=== PATIENT | female | born 1970 | race American Indian/Alaskan Native ===

== ENCOUNTER 2018-07-31 19:01 | Emergency (ER) | payer SELFPAY ==
--- OUTSIDE RECORDS SUMMARY | 2018-07-31 19:03 | XMS REPORT | Summary of Care ---
:1970 Author Organization [facility] Address [address] [place], [place] [address]- Encounter HQ Encntr_alias(FIN) [id number] Date(s): 04/07/16 - 04/07/16 [facility] [address] [place] [address]- [phone] Discharge Disposition: Home Attending Physician: Crispin Trinidad MD Vital Signs No data available for this section Problem List No data available for this section Allergies, Adverse Reactions, Alerts Substance Reaction Severity Status codeine Active penicillins Active Medications No data available for this section Results No data available for this section Immunizations No data available for this section Procedures No data available for this section Social History Social History Type Response Smoking Status Current every day smoker; Type: Cigarettes; Ready to change: No ; Concerns about tobacco use in household: No; Exposure to Tobacco Smoke None; Cigarette Smoking Last 365 Days Yes; Reg Smoking Cessation Counseling No Assessment and Plan No data available for this section
--- OUTSIDE RECORDS SUMMARY | 2018-07-31 19:03 | XMS REPORT | Continuity of Care Document ---
:1970 Author Organization Interface Problems Problem Status Onset Classification Date Comments Source Date Reported Discharge 02/22/2016 [facility] Diagnosis: 6 Other chronic pain NUMBNESS ALL Active [facility] OVER BODY 6 M54.5 Active [facility] Medications Medication Details Route Status Patient Ordering Order Source Instructions Provider Date predniSONE 20 mg 40 mg=2 Active oral tablet tab, PO, 016 [facility] Daily, X 5 day, # 10 tab, 0 Refill(s) Diazepam 10 mg, Inactive Route: PO, 016 [facility] ONCE, Dosing Weight 59.091, kg, Priority: STAT, Start date: 02/19/16 19:56:00 CDT, Stop date: 02/19/16 19:56:00 CDT Acetaminophen 1 tab, Inactive 325 MG / Route: PO, 016 [facility] Hydrocodone Dosing Bitartrate 5 MG Weight Oral Tablet 59.091, kg, ONCE, STAT, Start date: 02/19/16 19:56:00 CDT, Stop date: 02/19/16 19:56:00 CDT Dexamethasone 12 mg, Inactive Route: IM, 016 [facility] ONCE, Dosing Weight 59.091, kg, Priority: STAT, Start date: 02/19/16 19:56:00 CDT, Stop date: 02/19/16 19:56:00 CDT Allergies, Adverse Reactions, Alerts Substance Category Reaction Severity Reaction Status Date Comments Source type Reported codeine [facility] Active allergy [facility] penicillins [facility] Active allergy [facility] Immunizations Immunization Date Given Site Status Last Updated Comments Source Results Order Results Value Reference Date Interpretation Comments Source Name Range Spine Spine lumbar Study: Lumbar spine, 5 views 04/07 - lumbar series DX /2015 - [facility] series DX Clinical Indication: M54.5 Low back pain Read by: Darron Orellana MD Dictated Date/time: 04/07/16 17:01 Electronically Signed by: Darron Orellana MD 04/07/16 17:01 FINAL REPORT Comparison: None FINDINGS: Multiple views of the lumbar spine show 5 nonrib-bearing lumbar vertebra. No acute compression fracture or subluxation is seen. Intervertebral disc spaces are well-maintained. No pars interart icularis defects are seen. Soft tissues are unremarkable. IMPRESSION: No significant abnormality of the lumbar spine. SL: [id number] URINE UA Color Ltyellow 02/19 AND /2015 [facility] STOOL URINE UA <=1.0 mg/dL 0.1 - 1.0 02/19 AND Urobilinogen /2015 [facility] STOOL URINE UA WBC 1 /HPF 0 - 5 02/19 AND /2015 [facility] STOOL URINE UA RBC 2 /HPF 0 - 2 02/19 AND /2015 [facility] STOOL URINE UA Leuk Est Trace Negative 02/19 AND /2015 [facility] STOOL *ABN* (02/19/16 7:50 PM) URINE UA Sq Epi Few /LPF Few /LPF 02/19 AND /2015 [facility] STOOL URINE UA Ketones Negative Negative 02/19 AND mg/dL mg/dL /2015 [facility] STOOL URINE UA Glucose Negative Negative 02/19 AND mg/dL mg/dL /2015 [facility] STOOL URINE UA Blood Negative Negative 02/19 AND /2015 [facility] STOOL (02/19/16 7:50 PM) URINE UA Bili Negative Negative 02/19 AND /2015 [facility] STOOL *NA* (02/19/16 7:50 PM) URINE UA Turbidity Clear Clear 02/19 AND /2015 [facility] STOOL (02/19/16 7:50 PM) URINE UA Protein Negative Negative 02/19 AND mg/dL mg/dL /2015 [facility] STOOL URINE UA pH 6.0 5.0 - 8.0 02/19 AND /2015 [facility] STOOL URINE UA Spec Grav 1.016 <=1.030 02/19 AND /2015 [facility] STOOL URINE UA Nitrite Negative Negative 02/19 AND /2015 [facility] STOOL (02/19/16 7:50 PM) URINE U Preg Negative Negative 02/19 CHEM /2015 [facility] (02/19/16 7:50 PM) Vital Signs Vital Sign Value Date Comments Source Systolic (mm Hg) 124 02/20/2016 [facility] Respitory Rate 16 02/20/2016 [facility] Heart Rate 80 02/20/2016 [facility] Diastolic (mm Hg) 74 02/20/2016 [facility] Temperature Oral (F) 98.7 F 02/20/2016 [facility] Systolic (mm Hg) 122 02/20/2016 [facility] Diastolic (mm Hg) 79 02/20/2016 [facility] Respitory Rate 18 02/20/2016 [facility] Heart Rate 86 02/20/2016 [facility] BMI Calculated 25.44 02/20/2016 [facility] Height 152.4 cm 02/20/2016 [facility] Temperature Oral (F) 99.7 F 02/20/2016 [facility] Weight 59.091 02/20/2016 [facility] Encounters Location Location Encounter Encounter Reason Attending ADM DC Status Source Details Type Number For Provider Date Date Visit [facility] [id number] [facility] 02/19 02/19 [facility] /2015 [facility] Outpatient [id number] Crispin 04/07 04/08 [facility] Trinidad /2015 [facility] Procedures Procedure Code Date Perfomer Comments Source
--- OUTSIDE RECORDS SUMMARY | 2018-07-31 19:03 | XMS REPORT | Summary of Care ---
:1970 Author Organization [facility] Address [address] [address] [place], [place] [address]- Encounter HQ Lizette(SANTHOSH) [id number] Date(s): 02/19/16 - 02/19/16 [facility] [address] [place] [address]- [phone] Discharge Diagnosis: Other chronic pain Discharge Disposition: Home Attending Physician: Tor Estrada MD Vital Signs Most recent to oldest [Reference Range]: 1 2 Height 152.4 cm (02/19/16 7:19 PM) Temperature Oral [96.4-99.1 DegF] 98.7 DegF 99.7 DegF (02/19/16 8:32 PM) *HI* (02/19/16 7:19 PM) Blood Pressure [90-140/60-90 mmHg] 122/79 mmHg (02/19/16 7:19 PM) Systolic Blood Pressure [90-140 mmHg] 124 mmHg (02/19/16 8:32 PM) Diastolic Blood Pressure [60-90 mmHg] 74 mmHg (02/19/16 8:32 PM) Respiratory Rate [14-20 BRMIN] 16 BRMIN 18 BRMIN (02/19/16 8:32 PM) (02/19/16 7:19 PM) Peripheral Pulse Rate [60-100 bpm] 80 bpm 86 bpm (02/19/16 8:32 PM) (02/19/16 7:19 PM) Weight 59.091 kg (02/19/16 7:19 PM) Body Mass Index 25.44 m2 (02/19/16 7:19 PM) Problem List No data available for this section Allergies, Adverse Reactions, Alerts Substance Reaction Severity Status codeine Active penicillins Active Medications acetaminophen-hydrocodone 325 mg-5 mg oral tablet 1 tab, Route: PO, Dosing Weight 59.091, kg, ONCE, STAT, Start date: 02/19/16 19: 56:00 CDT, Stop date: 02/19/16 19:56:00 CDT Start Date: 02/19/16 Stop Date: 02/19/16 Status: Completeddexamethasone 12 mg, Route: IM, ONCE, Dosing Weight 59.091, kg, Priority: STAT, Start date: 19:56:00 CDT,Stop date: 02/19/16 19:56:00 CDT Start Date: 02/19/16 Stop Date: 02/19/16 Status: Completeddiazepam 10 mg, Route: PO, ONCE, Dosing Weight 59.091, kg, Priority: STAT, Start date: 19:56:00 CDT,Stop date: 02/19/16 19:56:00 CDT Start Date: 02/19/16 Stop Date: 02/19/16 Status: CompletedpredniSONE 20 mg oral tablet 40 mg=2 tab, PO, Daily, X 5 day, # 10 tab, 0 Refill(s) Start Date: 02/19/16 Stop Date: 02/24/16 Status: Ordered Results URINE CHEM Most recent to oldest [Reference Range]: 1 U Preg [Negative] Negative (02/19/16 7:50 PM) URINE AND STOOL Most recent to oldest [Reference Range]: 1 UA Turbidity [Clear] Clear (02/19/16 7:50 PM) UA Color Ltyellow *NA* (02/19/16 7:50 PM) UA pH [5.0-8.0] 6.0 (02/19/16 7:50 PM) UA Spec Grav [<=1.030] 1.016 (02/19/16 7:50 PM) UA Glucose [Negative mg/dL] Negative mg/dL *NA* (02/19/16 7:50 PM) UA Blood [Negative] Negative (02/19/16 7:50 PM) UA Ketones [Negative mg/dL] Negative mg/dL *NA* (02/19/16 7:50 PM) UA Protein [Negative mg/dL] Negative mg/dL (02/19/16 7:50 PM) UA Urobilinogen [0.1-1.0 mg/dL] <=1.0 mg/dL *NA* (02/19/16 7:50 PM) UA Bili [Negative] Negative *NA* (02/19/16 7:50 PM) UA Leuk Est [Negative] Trace *ABN* (02/19/16 7:50 PM) UA Nitrite [Negative] Negative (02/19/16 7:50 PM) UA WBC [0-5 /HPF] 1 /HPF (02/19/16 7:50 PM) UA RBC [0-2 /HPF] 2 /HPF (02/19/16 7:50 PM) UA Sq Epi [Few /LPF] Few /LPF *NA* (02/19/16 7:50 PM) Immunizations No data available for this section [...]
--- NOTE | 2018-07-31 20:23 | EDPHYS ---
Physician Documentation [facility] Name: Shalini Roberts Age: 48 yrs Sex: Female : 1970 Arrival Date: 07/31/2018 Time: 19:03 Bed 11 Private MD: ED Physician Silvano Justin HPI: 07/31 20:37 This 48 yrs old Female presents to ER via Wheelchair with complaints of snw Back Pain. 20:37 The patient presents with pain that is acute, with no known mechanism of injury. The snw symptoms are located in the low back. Onset: The symptoms/episode began/occurred suddenly, today. The pain does not radiate. Associated signs and symptoms: The patient has no apparent associated signs or symptoms. The problem was sustained from a chronic condition, bending. Severity of symptoms: At their worst the symptoms were moderate. The patient has experienced similar episodes in the past, chronically. It is unknown whether or not the patient has recently seen a physician. hx of spondylosis. 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 - Social history:: Smoking status: Patient/guardian denies using tobacco. - Ebola Screening: : No symptoms or risks identified at this time. ROS: 20:32 Constitutional: Negative for fever, chills, and weight loss, Eyes: Negative for injury, snw pain, redness, and discharge, ENT: Negative for injury, pain, and discharge, Neck: Negative for injury, pain, and swelling, Cardiovascular: Negative for chest pain, palpitations, and edema, Respiratory: Negative for shortness of breath, cough, wheezing, and pleuritic chest pain, Abdomen/GI: Negative for abdominal pain, nausea, vomiting, diarrhea, and constipation, : Negative for injury, bleeding, discharge, and swelling, MS/Extremity: Negative for injury and deformity, Skin: Negative for injury, rash, and discoloration, Neuro: Negative for headache, weakness, numbness, tingling, and seizure. 20:32 Back: Positive for decreased range of motion, pain at rest, pain with movement, Negative for injury or acute deformity. Exam: 20:31 Constitutional: This is a well developed, well nourished patient who is awake, alert, snw and in no acute distress. Head/Face: Normocephalic, atraumatic. Eyes: Pupils equal round and reactive to light, extra-ocular motions intact. Lids and lashes normal. Conjunctiva and sclera are non-icteric and not injected. Cornea within normal limits. Periorbital areas with no swelling, redness, or edema. ENT: Nares patent. No nasal discharge, no septal abnormalities noted. Tympanic membranes are normal and external auditory canals are clear. Oropharynx with no redness, swelling, or masses, exudates, or evidence of obstruction, uvula midline. Mucous membranes moist. Neck: Trachea midline, no thyromegaly or masses palpated, and no cervical lymphadenopathy. Supple, full range of motion without nuchal rigidity, or vertebral point tenderness. No Meningismus. Chest/axilla: Normal chest wall appearance and motion. Nontender with no deformity. No lesions are appreciated. Cardiovascular: Regular rate and rhythm with a normal S1 and S2. No gallops, murmurs, or rubs. Normal PMI, no JVD. No pulse deficits. Respiratory: Lungs have equal breath sounds bilaterally, clear to auscultation and percussion. No rales, rhonchi or wheezes noted. No increased work of breathing, no retractions or nasal flaring. Abdomen/GI: Soft, non-tender, with normal bowel sounds. No distension or tympany. No guarding or rebound. No evidence of tenderness throughout. Skin: Warm, dry with normal turgor. Normal color with no rashes, no lesions, and no evidence of cellulitis. MS/ Extremity: Pulses equal, no cyanosis. Neurovascular intact. Full, normal range of motion. Neuro: Awake and alert, GCS 15, oriented to person, place, time, and situation. Cranial nerves II-XII grossly intact. Motor strength 5/5 in all extremities. Sensory grossly intact. Cerebellar exam normal. Normal gait. Psych: Awake, alert, with orientation to person, place and time. Behavior, mood, and affect are within normal limits. 20:31 Back: pain, that is moderate, ROM is painful, normal spinal alignment noted, CVA tenderness, is absent, vertebral tenderness, is not appreciated, muscle spasm, is appreciated in the left scapular area, right scapular area, left subscapular area, right subscapular area, low back area, mid back area, right mid back and right low back. Vital Signs: 19:10 BP 136 / 87; Pulse 78; Resp 18; Temp 98; Pulse Ox 100% on R/A; Weight 72.57 kg (R); ak1 Height 5 ft. 0 in. (152.40 cm) (R); Pain 10/10; 20:41 BP 130 / 69; Pulse 65; Resp 18; Pulse Ox 99% ; tl3 19:10 Body Mass Index 31.25 (72.57 kg, 152.40 cm) ak1 MDM: 19:56 Patient medically screened. snw 20:32 Data reviewed: vital signs, nurses notes. Data interpreted: Pulse oximetry: on room air snw is 100 %. Interpretation: normal. Counseling: I had a detailed discussion with the patient and/or guardian regarding: the historical points, exam findings, and any diagnostic results supporting the discharge/admit diagnosis, the presence of at least one elevated blood pressure reading (>120/80) during this emergency department visit, the need for outpatient follow up, for definitive care. Special discussion: I have referred the patient to see his PCP for further evaluation of high blood pressure. Based on the history and exam findings, there is no indication for further emergent testing or inpatient evaluation. I discussed with the patient/guardian the need to see the back specialist for further evaluation of the symptoms. I discussed with the patient/guardian the need to see the primary care provider for further evaluation of the symptoms. Administered Medications: 20:43 Drug: TORadol 60 mg Route: IM; Site: left gluteus; tl3 20:43 Follow up: Response: Medication administered at discharge. tl3 20:43 Drug: Valium 5 mg Route: PO; tl3 20:43 Follow up: Response: Medication administered at discharge. tl3 Disposition: 07/31/18 20:22 Discharged to Home. Impression: Low back pain. - Condition is Stable. - Discharge Instructions: Back Pain, Adult, Hypertension, Musculoskeletal Pain, Back Exercises, [id number], Cryotherapy, Heat Therapy. - Prescriptions for Diclofenac Sodium 75 mg Oral Tablet Sustained Release - take 1 tablet by ORAL route 2 times per day; 30 tablet. orphenadrine citrate 100 mg Oral Tablet Sustained Release - take 1 tablet by ORAL route 2 times per day As needed; 20 tablet. - Work release form, Medication Reconciliation Form, Thank You Letter, Antibiotic Education, Prescription Opioid Use form. - Follow up: Private Physician; When: 2 - 3 days; Reason: Recheck today's complaints, Continuance of care, Re-evaluation by your physician. Follow up: Emergency Department; When: As needed; Reason: Worsening of condition. Addendum: 08/07/2018 11:49 Co-signature as Attending Physician, Silvano Justin MD. g s Signatures: Eliza Cole, KARMA-C GREY WASHER-CsnAlexa Lund, RN RN ak1 Silvano Justin MD MD Kareen Victoria, RN RN tl3 Corrections: (The following items were deleted from the chart) 07/31 20:44 20:22 07/31/2018 20:22 Discharged to Home. Impression: Low back pain. Condition is tl3 Stable. Forms are Medication Reconciliation Form, Thank You Letter, Antibiotic Education, Prescription Opioid Use. Follow up: Private Physician; When: 2 - 3 days; Reason: Recheck today's complaints, Continuance of care, Re-evaluation by your physician. Follow up: Emergency Department; When: As needed; Reason: Worsening of condition. snw
--- NOTE | 2018-07-31 20:23 | ER ---
Nurse's Notes [facility] Name: Shalini Roberts Age: 48 yrs Sex: Female : 1970 Arrival Date: 07/31/2018 Time: 19:03 Bed 11 Private MD: Diagnosis: Low back pain Presentation: 07/31 19:11 Presenting complaint: Patient states: back pain after work today. 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 Transition of care: patient was not received from another setting of care. Onset of symptoms was July 31, 2018. Risk Assessment: Do you want to hurt yourself or someone else? Patient reports no desire to harm self or others. Initial Sepsis Screen: Does the patient meet any 2 criteria? No. Patient's initial sepsis screen is negative. Does the patient have a suspected source of infection? No. Patient's initial sepsis screen is negative. Care prior to arrival: None. 19:11 Method Of Arrival: Wheelchair ak1 19:11 Acuity: ALEAH 4 ak1 Triage Assessment: 19:12 General: Appears in no apparent distress. Behavior is calm, cooperative. Pain: ak1 Complains of pain in back. 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 - Social history:: Smoking status: Patient/guardian denies using tobacco. - Ebola Screening: : No symptoms or risks identified at this time. Screenin:41 Abuse screen: Denies threats or abuse. Nutritional screening: No deficits noted. tl3 Tuberculosis screening: No symptoms or risk factors identified. Fall Risk None identified. Assessment: 20:41 Neuro: Level of Consciousness is awake, alert, obeys commands. tl3 Vital Signs: 19:10 BP 136 / 87; Pulse 78; Resp 18; Temp 98; Pulse Ox 100% on R/A; Weight 72.57 kg (R); ak1 Height 5 ft. 0 in. (152.40 cm) (R); Pain 10/10; 20:41 BP 130 / 69; Pulse 65; Resp 18; Pulse Ox 99% ; tl3 19:10 Body Mass Index 31.25 (72.57 kg, 152.40 cm) ak1 ED Course: 19:03 Patient arrived in ED. as 19:11 Triage completed. ak1 19:12 Arm band placed on Patient placed in waiting room, Patient notified of wait time. ak1 19:18 Eliza Cole FNP-C is [facility]. snw 19:18 Silvano Justin MD is Attending Physician. snw 20:41 No provider procedures requiring assistance completed. Patient did not have IV access tl3 during this emergency room visit. 20:44 Patient has correct armband on for positive identification. tl3 Administered Medications: 20:43 Drug: TORadol 60 mg Route: IM; Site: left gluteus; tl3 20:43 Follow up: Response: Medication administered at discharge. tl3 20:43 Drug: Valium 5 mg Route: PO; tl3 20:43 Follow up: Response: Medication administered at discharge. tl3 Outcome: 20:22 Discharge ordered by . snw 20:44 Discharged to home ambulatory. tl3 20:44 Condition: good 20:44 Discharge instructions given to patient, Instructed on discharge instructions, follow up and referral plans. medication usage, Demonstrated understanding of instructions, follow-up care, medications, Prescriptions given X 1. 20:44 Patient left the ED. tl3 Signatures: Eliza Cole FNP-C FNP-Philomena Tolbert Amber RN RN ak1 Kareen Victoria RN RN tl3
[2018-07-31] MEDS ORDERED: DIAZEPAM 5 MG TABLET ONE (20:40)
[2018-07-31] MEDS ORDERED: KETOROLAC 30 MG/ML INJ ONE (20:41)
== END 2018-07-31 20:44 | disposition home or self-care (01) ==
LOC: ER 19:01
DX: M54.5 Low back pain (principal); Z88.0 Allergy status to penicillin
CPT/HCPCS: 96372; 99283

== ENCOUNTER 2020-10-28 08:53 | Emergency (ER) | payer SELFPAY ==
--- OUTSIDE RECORDS SUMMARY | 2020-10-28 09:53 | XMS REPORT | Continuity of Care Document ---
:1970 Author Organization [facility] t Address [address] [place] [address] Care Team Providers Name Role Phone Vivi Attending Clinician Ignacio Estrada Attending Clinician Problems Condition Condition Condition Status Onset Resolution Last Treating Co mments Source Name Details Category Date Date Treatment Clinician Date BV BV Disease Active Josafat (bacterial (bacterial 4-20 He alth vaginosis) vaginosis) 00:00: 00 Trichomona Trichomona Disease Active H arris s s 4-20 Health vaginalis vaginalis 00:00: (TV) (TV) 00 infection infection Cough Cough Disease Active Josafat 6-14 Health 00:00: 00 Dysuria Dysuria Disease Active Maurice 5-21 Health 00:00: 00 Vaginal Vaginal Disease Active Maurice discharge discharge 5-21 Heal th 00:00: 00 Chronic Chronic Disease Active Josafat low back low back 5-21 Health pain pain 00:00: without without 00 sciatica sciatica NUMBNESS Diagnosis Active 2016-02-19 M emoria ALL OVER -19 23:17:00 l BODY NUMBNESS 00:00: [place] n ALL OVER 00 BODY Active 02/19/2016 [facility] Shoulder Shoulder Disease Active Harri s pain pain -26 Health 00:00: 00 Sinusitis Sinusitis Disease Active 2010-10 Tio ris 1-29 Health 00:00: 00 Chronic Chronic Disease Active Josafat bilateral bilateral -28 Heal th low back low back 00:00: pain with pain with 00 bilateral bilateral sciatica sciatica Wrist pain Wrist pain Disease Active 2008-10 H arris 0-14 Health 00:00: 00 Pain, Pain, Disease Active [place] dental dental [facility] Generalize Generalize Disease Active H arris d d Health abdominal abdominal pain pain M54.5 Diagnosis Active 2016-04-07 Mem oria 16:43:00 l M54.5 [place] Active [facility] Discharge Problem 2016-02-22 2016-02-22 Memoria Diagnosis: 5-19 04:31:30 04:31:30 l Other 05:00: [place] chronic Discharge 00 pain Diagnosis: Other chronic pain 02/19/2016 02/22/2016 [facility] Allergies, Adverse Reactions, Alerts Allergy Allergy Status Severity Reaction(s) Onset Inactive Treating Comm ents Source Name Type Date Date Clinician Mushroom Propensi Active [facility] [place] ty to 03-29 Health adverse 00:00: reaction 00 s to drug Codeine Propensi Active Nausea and HIVES Tio ris ty to Vomiting 06 Health adverse 00:00: reaction 00 s to drug [facility]icill [facility] to 06 any Health adverse 00:00: allergy reaction 00 to latex s to drug codeine codeine Active Memoria l [place] penicill penicill Active Memori a ins ins l Fed[place] Family History Family Member Diagnosis Comments Start Date Stop Date Source Natural mother Heart [facility] Paternal grandmother Diabetes Diana is [facility] Natural son Asthma [facility] Social [facility] Start Date Stop Date Quantity Comments Source Sex Assigned [facility] alth Alcohol intake 2017-01-20 2017-01-20 [facility]00 00:00:00 alcohol (finding) Tobacco Comment 2009-05-12 2009-05-12 occasional [place] He alth 00:00:00 00:00:00 Smoking Status Start Date Stop Date Source Social History 2016-02-20 01:30:00 [facility] Medications Ordered Filled Start Stop Current Ordering Indication Dosage Frequency Signature Comments Components Source Medication Medication Date Date Medication? Clinician (SIG) Name Name traZODone Yes Insomnia, Take 1 to [place] (DESYREL) -18 unspecified 2 tabs 45 Health 50 mg 00:00: minutes tablet 00 before sleep. naproxen Yes Chronic low 500mg Take 1 [place] (NAPROSYN) 04-19 back pain tablet by [facility] 500 mg 00:00: without mouth 2 tablet 00 sciatica, times unspecified daily back pain (with laterality meals) Please take with food. predniSONE Yes 40 mg = 2 Me moria 20 mg oral 5-20 tab, PO, l tablet 01:27: Daily, X 5 Rosalie nn 00 day, # 10 tab, 0 Refill(s) Diazepam No 10 mg, Memoria 5-20 Route: PO, l 00:56: ONCE, Federico Dosing Weight 59.091, kg, Priority: STAT, Start date: 02/19/16 19:56:00 CDT, Stop date: 02/19/16 19:56:00 CDT Acetaminoph No 1 tab, Jose Ramon teresa en 325 MG / 5-20 Route: PO, l Hydrocodone 00:56: Dosing Herm pritesh Bitartrate 00 Weight 5 MG Oral 59.091, Tablet kg, ONCE, STAT, Start date: 02/19/16 19:56:00 CDT, Stop date: 02/19/16 19:56:00 CDT Dexamethaso No 12 mg, Jose Ramon teresa ne 5-20 Route: IM, l 00:56: ONCE, Dosing Weight 59.091, kg, Priority: STAT, Start date: 02/19/16 19:56:00 CDT, Stop date: 02/19/16 19:56:00 CDT methocarbam Yes LBP (low 750mg Take 1 Maurice ol 4-26 back pain) tablet by [facility] (ROBAXIN) 00:00: mouth 2 750 mg 00 times tablet daily as needed (for muscle spasm). sulindac Yes Abdominal 200mg Q.5D Take 1 H arris (CLINORIL) 4-26 pain tablet by [facility] th 200 mg 00:00: mouth 2 tablet 00 times daily. Take with food and use only if needed for pain promethazin Yes Gallstones 25mg Take 1 Tab Maurice e 4-11 by mouth Health (PHENERGAN) 00:00: every 8 25 mg 00 hours as tablet needed for Nausea and Vomiting. omeprazole Yes Heartburn 20mg QD Take 1 Cap [place] (PRILOSEC) 4-11 by mouth Heal h 20 mg 00:00: daily. 30 delayed 00 min before release a meal for capsule stomach. Immunizations Ordered Immunization Filled Immunization Date Status Commen ts Source Name Name Influenza Vaccine 2012-10-23 Completed [facility] 00:00:00 PPD 2011-01-11 Completed [facility] 00:00:00 Influenza Vaccine 2010-09-04 Completed [facility] 00:00:00 Tdap Tetanus, 2010-09-04 Completed [facility] th diphtheria, 00:00:00 acellular pertussis Vaccine Vital Signs Vital Name Observation Time Observation Value Comments Source Systolic (mm Hg) 2016-02-20 01:32:00 Jose Ramon rial Federico Respitory Rate 2016-02-20 01:32:00 Memori al [place] Heart Rate 2016-02-20 01:32:00 [facility] Diastolic (mm Hg) 2016-02-20 01:32:00 Mem orial [place] Temperature Oral (F) 2016-02-20 01:32:00 98.7 F [facility] [place] Systolic (mm Hg) 2016-02-20 00:19:00 Jose Ramon rial [place] Diastolic (mm Hg) 2016-02-20 00:19:00 Mem orial [place] Respitory Rate 2016-02-20 00:19:00 Memori al [place] Heart Rate 2016-02-20 00:19:00 [facility] [place] BMI Calculated 2016-02-20 00:19:00 Memori al [place] Height 2016-02-20 00:19:00 152.4 cm [facility] [place] Temperature Oral (F) 2016-02-20 00:19:00 99.7 F [facility] [place] Weight 2016-02-20 00:19:00 [facility] [place] Procedures This patient has no known procedures. Plan of Care Planned Activity Planned Date Details Comments Source Future Scheduled Test 2021-05-04 00:00:00 Screening for [facility] malignant neoplasm of cervix (procedure) [code = [id number]] Future Scheduled Test 2021-05-04 00:00:00 Screening for [facility] malignant neoplasm of cervix (procedure) [code = [id number]] Future Scheduled Test 2018 00:00:00 Screening for [facility] malignant neoplasm of colon (procedure) [code = 322779874] Future Scheduled Test 2017-04-19 00:00:00 Breast Cancer Scrn [facility] (Yearly) [code = Breast Cancer Scrn (Yearly)] Encounters Start End Encounter Admission Attending Care Care Encounter Source Date/Time Date/Time Type Type Clinicians Facility Department ID 2016-04-07 2016-04-07 Outpatient RIGOBERTO Trinidad [facility] [id number] 16:33:00 23:59:00 Crispin Antony 2016-02-19 2016-02-19 Outpatient RIGOBERTO Estrada [facility] [id number] 19:18:00 20:33:00 Nadim B 01 Results Test Description Test Time Test Comments Results Result Sourc e Comments URINE AND STOOL 2016-02-20 1 [facility] 00:50:00 [place] URINE AND STOOL 2016-02-20 2 [facility] 00:50:00 [place] URINE AND STOOL 2016-02-20 Trace [facility] 00:50:00 *ABN*(02/19/16 [place] 7:50 PM) URINE AND STOOL 2016-02-20 Negative [facility] 00:50:00 (02/19/16 7:50 [place] PM) URINE AND STOOL 2016-02-20 Negative [facility] 00:50:00 *NA*(02/19/16 [place] 7:50 PM) URINE AND STOOL 2016-02-20 Clear (02/19/16 Memor ial 00:50:00 7:50 PM) [place] URINE AND STOOL 2016-02-20 6.0 [facility] 00:50:00 [place] URINE AND STOOL 2016-02-20 1.016 [facility] 00:50:00 [place] URINE AND STOOL 2016-02-20 Negative [facility] 00:50:00 (02/19/16 7:50 [place] PM) URINE CHEM 2016-02-20 Negative [facility] 00:50:00 (02/19/16 7:50 [place] PM)
--- OUTSIDE RECORDS SUMMARY | 2020-10-28 09:53 | XMS REPORT | Clinical Summary ---
:1970 Author Organization [facility] Address [address] [place] [address] Care Team Providers Name Role Phone Unavailable Primary Care Provider Unavailable Allergies Active Allergy Reactions Severity Noted Date Comments Codeine Nausea and Vomiting 11/08/2007 HIVES Mushroom Hives 03/29/2016 Penicillins Hives Medium 11/08/2007 Pt denies any a llergy to latex Medications Medication Sig Dispensed Refills Start Date End Date Status promethazine Take 1 Tab by 60 Tab 1 01/11/2011 Ac tive (PHENERGAN) 25 mg mouth every 8 tabletIndications: hours as needed Gallstones for Nausea and Vomiting. omeprazole (PRILOSEC) Take 1 Cap by 30 Cap 2 01/11/2011 Active 20 mg delayed release mouth daily. 30 capsuleIndications: min before a meal Heartburn for stomach. methocarbamol (ROBAXIN) Take 1 tablet by 60 tablet 1 3 Active 750 mg mouth 2 times tabletIndications: LBP daily as needed (low back pain) (for muscle spasm). sulindac (CLINORIL) 200 Take 1 tablet by mouth 2 caitie es daily. Take with food and use only if needed for pain 30 tablet 0 01/26/2013 Active mg tabletIndications: Abdominal pain traZODone (DESYREL) 50 Take 1 to 2 tabs 60 tablet 0 04/19/2016 Active mg tabletIndications: 45 minutes before Insomnia, unspecified sleep. naproxen (NAPROSYN) 500 Take 1 tablet by 60 tablet 3 6 Active mg tabletIndications: mouth 2 times Chronic low back pain daily (with without sciatica, meals) Please unspecified back pain take with food. laterality Active Problems Problem Noted Date BV (bacterial vaginosis) 01/20/2017 Trichomonas vaginalis (TV) infection 01/20/2017 Cough 03/16/2016 Dysuria 02/21/2016 Vaginal discharge 02/21/2016 Chronic low back pain without sciatica 02/21/2016 Shoulder pain 01/26/2013 Sinusitis 08/31/2011 Chronic bilateral low back pain with bilateral sciatic a 01/28/2011 Wrist pain 07/16/2009 Pain, dental Generalized abdominal pain Immunizations Name Administration Dates Next Due Influenza Vaccine 10/23/2012 (Deferred: W/O Fever for 72 hours), 10/23/2012, 09/04/2010 PPD 01/11/2011 Tdap Tetanus, diphtheria, acellular 09/04/2010 pertussis Vaccine Family History Medical History Relation Name Comments Heart Mother Diabetes Paternal Grandmother Asthma Son Relation Name Status Comments Daughter Alive 1 Father Maternal Grandfather Maternal Grandmother Mother Alive Paternal Grandfather Paternal Grandmother Son Alive 1 Son Social History Tobacco Use Types Packs/Day Years Used Date Current Every Day Smoker Comments: occasional Alcohol Use Drinks/Week oz/Week Comments Yes Sex Assigned at Date Recorded Not on file Last Filed Vital Signs Not on file Plan of Treatment Health Maintenance Due Date Last Done Comments Breast Cancer Scrn (Yearly) 04/19/2017 04/19/2016, 02/16/20 11 FIT Colorectal Cancer Scrn 2018 HPV Cervical Cancer Scrn 05/04/2021 05/04/2016, 05/04/2016 Pap Cervical Cancer Scrn 05/04/2021 05/04/2016 Results Not on fileafter 10/28/2019 Advance Directives Code Status Date Activated Date Inactivated Comments Full Code 10/22/2012 8:23 PM 10/29/2012 8:14 PM
--- OUTSIDE RECORDS SUMMARY | 2020-10-28 09:53 | XMS REPORT | Continuity of Care Document ---
:1970 Author Organization [employer] Care Team Providers Name Role Phone [employer] Unavailable Un available Problems Problem Status Onset Classification Date Comments Sour e Date Reported Discharge 02/22/2016 Jacek ast Diagnosis: 6 Other chronic pain NUMBNESS ALL Active [place] [facility] OVER BODY 6 M54.5 Active [facility] st Medications Medication Details Route Status Patient Ordering Order Source Instructions Provider Date predniSONE 20 mg 40 mg = 2 Active oral tablet tab, PO, 016 [facility] Daily, X 5 day, # 10 tab, 0 Refill(s) Diazepam 10 mg, Inactive Route: PO, 016 ONCE, Dosing Weight 59.091, kg, Priority: STAT, Start date: 02/19/16 19:56:00 CDT, Stop date: 02/19/16 19:56:00 CDT Acetaminophen 1 tab, Inactive 325 MG / Route: PO, Hydrocodone Dosing Bitartrate 5 MG Weight Oral Tablet 59.091, kg, ONCE, STAT, Start date: 02/19/16 19:56:00 CDT, Stop date: 02/19/16 19:56:00 CDT Dexamethasone 12 mg, Inactive Route: IM, 016 ONCE, Dosing Weight 59.091, kg, Priority: STAT, Start date: 02/19/16 19:56:00 CDT, Stop date: 02/19/16 19:56:00 CDT Allergies, Adverse Reactions, Alerts Substance Category Reaction Severity Reaction Status Date Comments S ource type Reported codeine Assertion Drug Active allergy [place] [facility] penicillins Assertion Drug Active allergy [place] [facility] Immunizations No Data Provided for This Section Results Order Results Value Reference Date Interpretation Comments Source Name Range URINE UA Color Ltyellow AND 2015 STOOL URINE UA <=1.0 0.1 - 1.0 AND Urobilinogen mg/dL 2016 [facility] STOOL URINE UA WBC 1 0 - 5 AND 2015 [facility] STOOL URINE UA RBC 2 0 - 2 AND 2015 [facility] STOOL URINE UA Leuk Est Trace Negative AND *ABN* 2016 [facility] STOOL (02/19/16 7:50 PM) URINE UA Sq Epi Few /LPF Few /LPF AND 2015 [facility] STOOL URINE UA Ketones Negative Negative AND mg/dL mg/dL 2016 [facility] STOOL URINE UA Glucose Negative Negative AND mg/dL mg/dL 2016 [facility] STOOL URINE UA Blood Negative Negative AND (02/19/16 7:50 PM) 2015 [facility] STOOL URINE UA Bili Negative Negative AND *NA* 2016 [facility] STOOL (02/19/16 7:50 PM) URINE UA Turbidity Clear Clear AND (02/19/16 7:50 PM) 2015 [facility] STOOL URINE UA Protein Negative Negative AND mg/dL mg/dL 2015 [facility] STOOL URINE UA pH 6.0 5.0 - 8.0 AND 2015 [facility] STOOL URINE UA Spec Grav 1.016 <=1.030 AND 2015 [facility] STOOL URINE UA Nitrite Negative Negative AND (02/19/16 7:50 PM) 2015 [facility] STOOL URINE U Preg Negative Negative CHEM (02/19/16 7:50 PM) 2015 [facility] Pathology Reports No Data Provided for This Section Diagnostic Reports Report Value Date Source Spine lumbar series Study: Lumbar spine, 5 views 04/07/2016 [facility] DX Clinical Indication: M54.5 Low back pain Comparison: None FINDINGS: Multiple views of the lumbar spine show 5 nonrib-bearing lumbar vertebra. No acute compression fracture or subluxation is seen. Intervertebral disc spaces are well-maintained. No pars interart icularis defects are seen. Soft tissues are unre markable. IMPRESSION: No significant abnormality of the kate mbar spine. SL: [id number] Consultation Notes No Data Provided for This Section Discharge Summaries No Data Provided for This Section History and Physicals No Data Provided for This Section Vital Signs Vital Sign Value Date Comments Source Systolic (mm Hg) 124 02/20/2016 [facility] t Respitory Rate 16 02/20/2016 [facility] Heart Rate 80 02/20/2016 [facility] Diastolic (mm Hg) 74 02/20/[address] [facility] [address] Temperature Oral (F) 98.7 F 02/20/2016 [place] [facility] Systolic (mm Hg) 122 02/20/2016 [facility] t Diastolic (mm Hg) 79 02/20/[address] [facility] [address] Respitory Rate 18 02/20/2016 [facility] Heart Rate 86 02/20/2016 [facility] BMI Calculated 25.44 02/20/2016 [facility] Height 152.4 cm 02/20/2016 [facility] Temperature Oral (F) 99.7 F 02/20/2016 [facility] Weight 59.091 02/20/2016 [facility] Encounters Location Location Encounter Encounter Reason Attending ADM DC Stat us Source Details Type Number For Provider Date Date Visit [facility] [id number] Nadim 02/19 02/19 Federico Emergency [facility] /2015 [facility] Outpatient [id number] Crispin 04/07 04/08 Federico Trinidad /2015 [facility] Procedures No Data Provided for This Section Assessment and Plan No Data Provided for This Section Plan of Care No Data Provided for This Section Social History Social History Date Source Social History TypeResponse 02/20/2016 [facility] Smoking Status Current every day smoker; Type: Cigarett es; Ready to change: No; Concerns about tobacco use in household: No; Exposure to Tobacco Smoke None; Cigarette Smoking Last 365 Days Yes; Reg Smoking Cessation Counseling No Family History No Data Provided for This Section Advance Directives No Data Provided for This Section Functional Status No Data Provided for This Section
[2020-10-28 11:02] LABS: Absolute Lymphocytes (CBC) 2.1 K/uL (0.7-4.9); Basophils % 0.7 % (0-1.3); Lymphocytes % 25.6 % (15.3-44.8); MPV 8.8 fL (7.6-11.3); RBC Red Blood Cell Count 4.84 M/uL (3.86-4.86)
[2020-10-28] MEDS ORDERED: NA CHLORIDE 0.9% 1,000 ML ONE (11:06)
[2020-10-28] MEDS ORDERED: MORPHINE 2 MG/ML SYR ONE (11:07)
[2020-10-28] MEDS ORDERED: FAMOTIDINE 20 MG/2 ML VIAL IV ONE (11:07)
[2020-10-28] MEDS ORDERED: ONDANSETRON 4 MG/2 ML VIAL ONE (11:07)
--- NOTE | 2020-10-28 11:10 | RAD REPORT ---
EXAM DESCRIPTION: CT - Abdomen Pelvis W Contrast - 10/28/2020 10:56 am CLINICAL HISTORY: ABD PAIN COMPARISON: No comparisons TECHNIQUE: Biphasic, helical CT imaging of the abdomen and pelvis was performed following 100 ml non -ionic IV contrast. No oral contrast. All CT scans are performed using dose optimization technique as appropriate and may include automated exposure control or mA/KV adjustment according to patient size. FINDINGS: No suspicious findings in the lung bases. The liver, spleen, and pancreas show no suspicious findings. Cholecystectomy clips are present. No bi liary tree dilatation. Symmetric renal function is seen with no hydronephrosis or suspicious renal mass. No pyelonephritis o r acute parenchymal process. No bladder abnormalities. No adrenal abnormalities. Uterus and ovaries show no suspicious findings. There are prominent, dilated veins in the left-side a dnexa. Left gonadal vein is prominent in size but opacifies normally. No gonadal vein thrombosis, wal l thickening or edema. No dilated bowel loops or bowel wall thickening. Minimal sigmoid diverticulosis without diverticuliti s. The appendix is normal. No free air, free fluid or inflammatory stranding. No mass or bulky lymph adenopathy. Very minimal fat only umbilical hernia present. No suspicious bony findings. IMPRESSION: Contrast enhanced CT abdomen and pelvis showing no acute or emergent finding.
[2020-10-28 11:15] LABS: Albumin 3.6 g/dL (3.4-5.0); Bilirubin Direct 0.2 mg/dL (0-0.2); Bilirubin Total 0.8 mg/dL (0.2-1.0); Protein, Total 8.1 g/dL (6.4-8.2)
[2020-10-28 11:32] LABS: Urine Blood NEGATIVE (NEG); Urine Glucose NEGATIVE (NEG); Urine Protein 1+ (NEG); Urine Specific Gravity 1.025 (1.005-1.030); Urine pH 5.5 (5.0-7.0)
--- NOTE | 2020-10-28 11:39 | ER ---
Nurse's Notes [facility] Name: Shalini Roberts Age: 50 yrs Sex: Female : 1970 Arrival Date: 10/28/2020 Time: 08:59 Bed 18 Private MD: Diagnosis: Abdominal tenderness;Gastritis, unspecified Presentation: 10/28 09:28 Chief complaint: Patient states: lower back pain and upper abdominal pain that began ss 5-7 days ago. Coronavirus screen: Client denies travel out of the [place] in the last 14 days. Ebola Screen: Patient denies exposure to infectious person. Patient denies travel to an Ebola-affected area in the 21 days before illness onset. Initial Sepsis Screen: Does the patient meet any 2 criteria? No. Patient's initial sepsis screen is negative. Does the patient have a suspected source of infection? No. Patient's initial sepsis screen is negative. Risk Assessment: Do you want to hurt yourself or someone else? Patient reports no desire to harm self or others. Onset of symptoms was October 22, 2020. 09:28 Method Of Arrival: Ambulatory ss 09:28 Acuity: ALEAH 3 ss Triage Assessment: 12:00 General: Appears. ll1 12:03 General: Behavior is calm, cooperative, appropriate for age. Pain: Complains of pain in ll1 right lower quadrant. Respiratory: Airway is patent Trachea midline Respiratory effort is even, unlabored, Respiratory pattern is regular, symmetrical. Injury Description: n/a none. 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 - Social history:: Smoking status: Patient denies any tobacco usage or history of. - Family history:: not pertinent. Screenin:34 Abuse screen: Denies threats or abuse. Nutritional screening: No deficits noted. ll1 Tuberculosis screening: No symptoms or risk factors identified. Fall Risk Total Bradford Fall Scale indicates No Risk (0-24 pts). Assessment: 09:30 Reassessment: Pt reports she has not had a menstrual cycle in 2-3 months. ss 10:40 General: Appears in no apparent distress. Behavior is calm, cooperative, appropriate ll1 for age. Pain: Complains of pain in right lower quadrant Pain currently is 9 out of 10 on a pain scale. Quality of pain is described as burning, aching. Neuro: No deficits noted. Cardiovascular: No deficits noted. Respiratory: No deficits noted. GI: Abdomen is flat, Bowel sounds present X 4 quads. Abd is soft Abdomen is tender to palpation in right lower quadrant Reports lower abdominal pain, diarrhea, nausea. : No deficits noted. Derm: Wound noted L breast Wound is small red area. Denies pain/itching. Reports small pimple l breast. Musculoskeletal: Circulation, motion, and sensation intact. Capillary refill < 3 seconds, Range of motion: intact in all extremities, Reports pain in low back. Vital Signs: 09:28 BP 135 / 82; Pulse 87; Resp 17; Temp 97.9(TE); Pulse Ox 99% on R/A; Weight 72.57 kg; ss Height 5 ft. 0 in. (152.40 cm); Pain 9/10; 11:59 BP 115 / 61; Pulse 85; Resp 17; Pulse Ox 100% ; Pain 5/10; ll1 09:28 Body Mass Index 31.25 (72.57 kg, 152.40 cm) ED Course: 08:59 Patient arrived in ED. am4 09:30 Triage completed. 09:30 Arm band placed on right wrist. 10:00 Shabbir Knutson MD is Attending Physician. [facility] 10:30 Amanda Tadeo, ZAIDA is Primary Nurse. ll1 10:34 Patient has correct armband on for positive identification. Call light in reach. Side ll1 rails up X 1. 10:42 Inserted saline lock: 22 gauge in right forearm, using aseptic technique. Blood ll1 collected. 10:57 CT completed. Patient tolerated procedure well. 11:13 EKG done, by ED staff, reviewed by Shabbir Knutson MD. [facility] 11:38 Cris Canas MD is Referral Physician. [facility] 12:00 No provider procedures requiring assistance completed. IV discontinued, intact, ll1 bleeding controlled, No redness/swelling at site. Pressure dressing applied. Administered Medications: 11:00 Drug: NS 0.9% 1000 ml Route: IV; Rate: 1 bolus; Site: right forearm; 1 12:05 Follow up: Response: No adverse reaction; RASS: Alert and Calm (0); IV Status: ll1 Completed infusion; IV Intake: 700ml 11:00 Drug: Pepcid 20 mg Route: IVP; Site: right forearm; ll1 12:04 Follow up: Response: No adverse reaction; RASS: Alert and Calm (0) 1 11:00 Drug: Zofran (Ondansetron) 4 mg Route: IVP; Site: right forearm; 1 12:04 Follow up: Response: No adverse reaction; RASS: Alert and Calm (0) 1 11:00 Drug: morphine 2 mg Route: IVP; Site: right forearm; 1 12:04 Follow up: Response: No adverse reaction; Pain is decreased; RASS: Alert and Calm (0) [facility] Intake: 12:05 IV: 700ml; Total: 700ml. [facility] Outcome: 11:38 Discharge ordered by . johnson 11:58 Patient left the ED. [facility] 12:03 Discharged to home ambulatory. [facility] 12:03 Condition: stable 12:03 Discharge instructions given to patient, Instructed on discharge instructions, follow up and referral plans. medication usage, Demonstrated understanding of instructions, follow-up care, medications, Prescriptions given X 3. Signatures: Shabbir Knutson MD MD cha Smirch, Shelby, RN RN Rosario Tejeda Deanna [facility] Amanda Tadeo RN RN 1 Veronique Perez 4
--- NOTE | 2020-10-28 11:39 | EDPHYS ---
Physician Documentation [facility] Name: Shalini Roberts Age: 50 yrs Sex: Female : 1970 Arrival Date: 10/28/2020 Time: 08:59 Bed 18 Private MD: SUDHIR Physician Shabbir Knutson HPI: 10/28 10:36 This 50 yrs old Female presents to ER via Ambulatory with complaints of johnson Abdominal Burn. 10:36 The patient presents with abdominal pain in the upper abdomen, in the lower abdomen, johnson abdominal distention in the upper abdomen, in the lower abdomen. Onset: The symptoms/episode began/occurred 2 day(s) ago. The symptoms do not radiate. Associated signs and symptoms: Pertinent positives: nausea and vomiting. The symptoms are described as burning, crampy. Modifying factors: The symptoms are alleviated by nothing, the symptoms are aggravated by nothing. The patient has not experienced similar symptoms in the past. 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 - Social history:: Smoking status: Patient denies any tobacco usage or history of. - Family history:: not pertinent. ROS: 10:36 Constitutional: Negative for fever, chills, and weight loss, Eyes: Negative for injury, johnson pain, redness, and discharge, ENT: Negative for injury, pain, and discharge, Neck: Negative for injury, pain, and swelling, Cardiovascular: Negative for chest pain, palpitations, and edema, Respiratory: Negative for shortness of breath, cough, wheezing, and pleuritic chest pain, Back: Negative for injury and pain, : Negative for injury, bleeding, discharge, and swelling, MS/Extremity: Negative for injury and deformity, Skin: Negative for injury, rash, and discoloration, Neuro: Negative for headache, weakness, numbness, tingling, and seizure, Psych: Negative for depression, anxiety, suicide ideation, homicidal ideation, and hallucinations, Allergy/Immunology: Negative for hives, rash, and allergies, Endocrine: Negative for neck swelling, polydipsia, polyuria, polyphagia, and marked weight changes, Hematologic/Lymphatic: Negative for swollen nodes, abnormal bleeding, and unusual bruising. 10:36 Abdomen/GI: Positive for abdominal pain, abdominal cramps, of the right upper quadrant, left upper quadrant, right lower quadrant and left lower quadrant. Exam: 10:36 Constitutional: This is a well developed, well nourished patient who is awake, alert, johnson and in no acute distress. Head/Face: Normocephalic, atraumatic. Eyes: Pupils equal round and reactive to light, extra-ocular motions intact. Lids and lashes normal. Conjunctiva and sclera are non-icteric and not injected. Cornea within normal limits. Periorbital areas with no swelling, redness, or edema. ENT: Nares patent. No nasal discharge, no septal abnormalities noted. Tympanic membranes are normal and external auditory canals are clear. Oropharynx with no redness, swelling, or masses, exudates, or evidence of obstruction, uvula midline. Mucous membranes moist. Neck: Trachea midline, no thyromegaly or masses palpated, and no cervical lymphadenopathy. Supple, full range of motion without nuchal rigidity, or vertebral point tenderness. No Meningismus. Chest/axilla: Normal chest wall appearance and motion. Nontender with no deformity. No lesions are appreciated. Cardiovascular: Regular rate and rhythm with a normal S1 and S2. No gallops, murmurs, or rubs. Normal PMI, no JVD. No pulse deficits. Respiratory: Lungs have equal breath sounds bilaterally, clear to auscultation and percussion. No rales, rhonchi or wheezes noted. No increased work of breathing, no retractions or nasal flaring. Back: No spinal tenderness. No costovertebral tenderness. Full range of motion. Skin: Warm, dry with normal turgor. Normal color with no rashes, no lesions, and no evidence of cellulitis. MS/ Extremity: Pulses equal, no cyanosis. Neurovascular intact. Full, normal range of motion. Neuro: Awake and alert, GCS 15, oriented to person, place, time, and situation. Cranial nerves II-XII grossly intact. Motor strength 5/5 in all extremities. Sensory grossly intact. Cerebellar exam normal. Normal gait. 10:36 Abdomen/GI: Inspection: abdomen appears normal, distension, that is mild, that is moderate, Bowel sounds: normal, active, Palpation: mild abdominal tenderness, in the right upper quadrant, left upper quadrant, right lower quadrant and left lower quadrant, Liver: no appreciated palpable abnormalities, Hernia: not appreciated. 11:39 ECG was reviewed by the Attending Physician. [facility] Vital Signs: 09:28 BP 135 / 82; Pulse 87; Resp 17; Temp 97.9(TE); Pulse Ox 99% on R/A; Weight 72.57 kg; ss Height 5 ft. 0 in. (152.40 cm); Pain 9/10; 11:59 BP 115 / 61; Pulse 85; Resp 17; Pulse Ox 100% ; Pain 5/10; ll1 09:28 Body Mass Index 31.25 (72.57 kg, 152.40 cm) ss MDM: 10:00 Patient medically screened. [facility] 10:39 Differential diagnosis: appendicitis, bowel obstruction, cholecystitis, Cholelithiasis, johnson diverticulitis, Hepatitis, non-specific abd pain, pancreatitis, Peptic Ulcer Disease, Ureterolithiasis, urinary tract infection. Data reviewed: vital signs, nurses notes, lab test result(s), EKG, radiologic studies, CT scan. Data interpreted: color television console monitor: rate is 87 beats/min, rhythm is regular, Pulse oximetry: on room air is 99 %. Test interpretation: by ED physician or midlevel provider: ECG, plain radiologic studies. Counseling: I had a detailed discussion with the patient and/or guardian regarding: the historical points, exam findings, and any diagnostic results supporting the discharge/admit diagnosis, lab results, radiology results. 10/28 10:36 Order name: Basic Metabolic Panel [facility] 10/28 10:36 Order name: CBC with Diff [facility] 10/28 10:36 Order name: Hepatic Function [facility] 10/28 10:36 Order name: Lipase [facility] 10/28 11:07 Order name: CBC with Automated Diff; Complete Time: 11:37 [facility] 10/28 11:15 Order name: Basic Metabolic Panel; Complete Time: 11:37 [facility] 10/28 10:36 Order name: CT Abd/Pelvis - IV Contrast Only [facility] 10/28 11:11 Order name: CT; Complete Time: 11:37 [facility] 10/28 11:15 Order name: Liver (Hepatic) Function; Complete Time: 11:37 [facility] 10/28 11:15 Order name: Lipase; Complete Time: 11:37 [facility] 10/28 11:27 Order name: Urine Dipstick--Ancillary (enter results); Complete Time: 11:37 10/28 11:27 Order name: CREATININE WHOLE BLOOD; Complete Time: 11:37 [facility] 10/28 10:36 Order name: IV Saline Lock; Complete Time: 10:48 [facility] 10/28 10:36 Order name: Labs collected and sent; Complete Time: 10:48 [facility] 10/28 10:36 Order name: EKG; Complete Time: 10:36 [facility] 10/28 10:36 Order name: EKG - Nurse/Tech; Complete Time: 11:18 [facility] 10/28 10:36 Order name: Urine Dipstick-Ancillary (obtain specimen); Complete Time: 10:48 [facility] 10/28 10:36 Order name: Urine Test (obtain specimen); Complete Time: 10:48 johnson EC:39 Rate is 61 beats/min. Rhythm is regular. QRS [place] is Normal. VT interval is normal. QRS johnson interval is normal. QT interval is normal. No Q waves. T waves are Normal. No ST changes noted. Clinical impression: NSR w/ Non-specific ST/T Changes and No evidence of ischemia. Interpreted by me. Reviewed by me. Administered Medications: 11:00 Drug: NS 0.9% 1000 ml Route: IV; Rate: 1 bolus; Site: right forearm; 1 12:05 Follow up: Response: No adverse reaction; RASS: Alert and Calm (0); IV Status: ll1 Completed infusion; IV Intake: 700ml 11:00 Drug: Pepcid 20 mg Route: IVP; Site: right forearm; 1 12:04 Follow up: Response: No adverse reaction; RASS: Alert and Calm (0) [facility] 11:00 Drug: Zofran (Ondansetron) 4 mg Route: IVP; Site: right forearm; 1 12:04 Follow up: Response: No adverse reaction; RASS: Alert and Calm (0) [facility] 11:00 Drug: morphine 2 mg Route: IVP; Site: right forearm; 1 12:04 Follow up: Response: No adverse reaction; Pain is decreased; RASS: Alert and Calm (0) [facility] Disposition: 10/28/20 11:38 Discharged to Home. Impression: Abdominal tenderness, Gastritis, unspecified. - Condition is Stable. - Discharge Instructions: Abdominal Pain, Adult, Gastritis, Adult, Gastritis, Adult, [id number], Abdominal Pain, Adult, [id number]. - Prescriptions for Bentyl 20 mg Oral Tablet - take 1 tablet by ORAL route every 6 hours As needed; 20 tablet. Pepcid 20 mg Oral Tablet - take 1 tablet by ORAL route every 12 hours for 10 days; 20 tablet. Zofran 4 mg Oral Tablet - take 1 tablet by ORAL route every 12 hours As needed; 20 tablet. - Medication Reconciliation Form, Thank You Letter, Antibiotic Education, Prescription Opioid Use form. - Follow up: Private Physician; When: 2 - 3 days; Reason: Recheck today's complaints, Continuance of care, Re-evaluation by your physician. Follow up: Cris Canas MD; When: 2 - 3 days; Reason: Recheck today's complaints, Continuance of care, Re-evaluation by your physician. - Problem is new. - Symptoms have improved. Signatures: Dispatcher [employer] EDAR Shabbir Knutson MD MD cha Smirch, Shelby RN RN ss Amanda Tadeo RN RN ll1 Corrections: (The following items were deleted from the chart) 11:58 11:38 10/28/2020 11:38 Discharged to Home. Impression: Abdominal tenderness; Gastritis, ll1 unspecified. Condition is Stable. Forms are Medication Reconciliation Form, Thank You Letter, Antibiotic Education, Prescription Opioid Use. Follow up: Private Physician; When: 2 - 3 days; Reason: Recheck today's complaints, Continuance of care, Re-evaluation by your physician. Follow up: Cris Canas; When: 2 - 3 days; Reason: Recheck today's complaints, Continuance of care, Re-evaluation by your physician. Problem is new. Symptoms have improved. johnson
[2020-10-28 12:04] VITALS: BP 135/82; TEMP 97.9; O2SAT 99
--- NOTE | 2020-10-29 06:30 | EKG ---
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
== END 2020-10-28 11:58 | disposition home or self-care (01) ==
LOC: ER 08:53
DX: K29.70 Gastritis, unspecified, without bleeding (principal); Z88.0 Allergy status to penicillin; Z88.5 Allergy status to narcotic agent
CPT/HCPCS: 36415; 74177; 80048; 80076; 81003; 82565; 83690; 85025; 93005; 96361; 96374; 96375; 99284; J2270; J2405; J7030; Q9967

== ENCOUNTER 2022-09-16 08:46 | Emergency (ER) | payer SELFPAY ==
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
[2022-09-16 09:31] LABS: Absolute Lymphocytes (CBC) 1.9 K/uL (0.7-4.9); Hematocrit 42.4 % (36.0-45.0); Lymphocytes % 20.8 % (15.3-44.8); MCV 89.9 fL (80-100); MPV 7.9 fL (7.6-11.3); RBC Red Blood Cell Count 4.72 M/uL (3.86-4.86)
[2022-09-16] MEDS ORDERED: MORPHINE 2 MG/ML SYR ONE (09:35)
[2022-09-16 09:36] LABS: Protime INR 0.99
[2022-09-16 09:57] LABS: Albumin 3.6 g/dL (3.4-5.0); Bilirubin Direct 0.1 mg/dL (0-0.2); Bilirubin Total 0.7 mg/dL (0.2-1.0); Potassium 3.7 mmol/L (3.5-5.1); Troponin High Sensitivity 4.9 pg/mL (<58.9)
--- NOTE | 2022-09-16 10:08 | RAD REPORT ---
EXAM DESCRIPTION: RAD - Chest Single View - 09/16/2022 9:31 am CLINICAL HISTORY: CHEST PAIN COMPARISON: None TECHNIQUE: AP portable chest image was obtained 09/16/2022 9:31 am . FINDINGS: Lungs are clear. Heart and vasculature are normal. No measurable pleural effusion and no p neumothorax. No acute bony abnormality seen. No acute aortic findings suspected. IMPRESSION: No acute cardiopulmonary process.
[2022-09-16] MEDS ORDERED: KETOROLAC 30 MG/ML INJ ONE (10:56)
--- NOTE | 2022-09-16 12:59 | EDPHYS ---
Physician Documentation [facility] Name: Shalini Rboerts Age: 52 yrs Sex: Female : 1970 Arrival Date: 09/16/2022 Time: 08:48 Bed 8 Private MD: ED Physician Nestor Patel HPI: 09/16 09:15 This 52 yrs old Female presents to ER via Ambulatory with complaints of sp3 Chest Pain. 09:15 51-year-old female with history of chronic back pain presents with chief complaint of sp3 substernal chest pain radiating to the left arm that started yesterday p.m. while in a family disagreement/argument. Patient states the pain has been there since and when she awoke it was there in the same amount. Pain is rated at a 5/10 no shortness of breath, back pain, abdominal pain, epigastric pain, nausea, vomiting, diarrhea, rash the other ROS at this time. Patient has no cardiac history and denies ever having prior heart issues, hypertension, diabetes or any other concerning findings. Patient is a half a pack per day smoker denies any drugs or alcohol at this time.. 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 - Social history:: Smoking status: Patient reports the use of cigarette tobacco products, smokes one-half pack cigarettes per day, Patient uses alcohol, on a daily basis. claims drinking about a 6 pack/day. ROS: 09:16 Constitutional: Negative for fever, chills, and weight loss, Eyes: Negative for injury, sp3 pain, redness, and discharge, ENT: Negative for injury, pain, and discharge, Neck: Negative for injury, pain, and swelling, Respiratory: Negative for shortness of breath, cough, wheezing, and pleuritic chest pain, Abdomen/GI: Negative for abdominal pain, nausea, vomiting, diarrhea, and constipation, Back: Negative for injury and pain, MS/Extremity: Negative for injury and deformity, Skin: Negative for injury, rash, and discoloration, Neuro: Negative for headache, weakness, numbness, tingling, and seizure, Psych: Negative for depression, anxiety, suicide ideation, homicidal ideation, and hallucinations, Allergy/Immunology: Negative for hives, rash, and allergies, Endocrine: Negative for neck swelling, polydipsia, polyuria, polyphagia, and marked weight changes. 09:16 All other systems are negative. Exam: 09:17 Constitutional: This is a well developed, well nourished patient who is awake, alert, sp3 and in no acute distress. Head/Face: Normocephalic, atraumatic. Eyes: Pupils equal round and reactive to light, extra-ocular motions intact. Lids and lashes normal. Conjunctiva and sclera are non-icteric and not injected. Cornea within normal limits. Periorbital areas with no swelling, redness, or edema. ENT: Nares patent. No nasal discharge, no septal abnormalities noted. External auditory canals are clear. Oropharynx with no redness, swelling, or masses, exudates, or evidence of obstruction, uvula midline. Mucous membranes moist. Neck: Trachea midline, no thyromegaly or masses palpated, and no cervical lymphadenopathy. Supple, full range of motion without nuchal rigidity, or vertebral point tenderness. No Meningismus. Chest/axilla: Normal chest wall appearance and motion. Nontender with no deformity. No lesions are appreciated. Cardiovascular: Regular rate and rhythm with a normal S1 and S2. No gallops, murmurs, or rubs. Normal PMI, no JVD. No pulse deficits. Respiratory: Lungs have equal breath sounds bilaterally, clear to auscultation and percussion. No rales, rhonchi or wheezes noted. No increased work of breathing, no retractions or nasal flaring. Abdomen/GI: Soft, non-tender, with normal bowel sounds. No distension or tympany. No guarding or rebound. No evidence of tenderness throughout. Back: No spinal tenderness. No costovertebral tenderness. Full range of motion. Skin: Warm, dry with normal turgor. Normal color with no rashes, no lesions, and no evidence of cellulitis. MS/ Extremity: Pulses equal, no cyanosis. Neurovascular intact. Full, normal range of motion. Neuro: Awake and alert, GCS 15, oriented to person, place, time, and situation. Cranial nerves II-XII grossly intact. Motor strength 5/5 in all extremities. Sensory grossly intact. Cerebellar exam normal. Normal gait. Psych: Awake, alert, with orientation to person, place and time. Behavior, mood, and affect are within normal limits. 09:17 ECG was reviewed by the Attending Physician. KG demonstrates normal sinus rhythm at 73 bpm with normal intervals, normal QRS, normal axis, normal ST/T segments. Vital Signs: 08:59 BP 144 / 106; Pulse 87; Resp 18; Temp 99.2(O); Pulse Ox 97% on R/A; Weight 81.65 kg; ld1 Height 5 ft. 0 in. (152.40 cm); Pain 10/10; 10:22 BP 114 / 68; Pulse 68; Resp 18; Pulse Ox 100% on R/A; kr3 11:30 BP 120 / 66; Pulse 63; Resp 18; Pulse Ox 99% on R/A; kr3 12:30 BP 127 / 70; Pulse 66; Resp 16; Pulse Ox 99% on R/A; kr3 13:30 BP 131 / 92; Pulse 71; Resp 17; Pulse Ox 100% on R/A; kr3 08:59 Body Mass Index 35.15 (81.65 kg, 152.40 cm) ld1 MDM: 09:17 Data reviewed: vital signs, nurses notes, lab test result(s), EKG, radiologic studies. sp3 ED course: 52-year-old female with chronic back pain presents with substernal chest pain for approximately 12 hours at this point. Differential diagnosis includes acute coronary syndrome, anxiety, musculoskeletal pain, esophageal reflux, among others. Patient's EKG is normal and I am not highly suspicious that this is ACS or related spectrum. Clinically have also ruled out pulmonary embolism, pneumonia, or any other respiratory emergency. Will obtain chest x-ray and laboratory values and likely hold patient for 2 consecutive troponins and discharge patient home given her low heart score.. 12:57 ED course: Repeat troponin is negative. Patient is ruled out from an ACS standpoint and sp3 I do not believe patient has any other etiology for her symptoms. We will discharge patient home at this time with PCP follow-up and general precautions.. 12:58 Patient medically screened. sp3 09/16 08:57 Order name: Basic Metabolic Panel; Complete Time: 10:09 sp3 09/16 08:57 Order name: CBC with Diff; Complete Time: 10:09 sp3 09/16 08:57 Order name: LFT's; Complete Time: 10:09 sp3 09/16 08:57 Order name: NT PRO-BNP; Complete Time: 10:09 sp3 09/16 08:57 Order name: PT-INR; Complete Time: 10:09 sp3 09/16 08:57 Order name: Troponin HS; Complete Time: 10:09 sp3 09/16 08:57 Order name: XRAY Chest (1 view); Complete Time: 10:09 sp3 09/16 08:57 Order name: EKG; Complete Time: 08:57 sp3 09/16 08:57 Order name: Cardiac monitoring; Complete Time: 09:32 sp3 09/16 08:57 Order name: EKG - Nurse/Tech; Complete Time: 09:32 sp3 09/16 08:57 Order name: IV Saline Lock; Complete Time: 09:32 sp3 09/16 10:10 Order name: Troponin High Sensitivity: Repeat at 12 noon; Complete Time: 12:56 sp3 09/16 08:57 Order name: Labs collected and sent; Complete Time: 09:32 sp3 09/16 08:57 Order name: O2 Per Protocol; Complete Time: 09:32 sp3 09/16 08:57 Order name: O2 Sat Monitoring; Complete Time: 09:32 sp3 Administered Medications: 09:41 Drug: morphine 2 mg Route: IVP; Infused Over: 4 mins; Site: left antecubital; kr3 13:38 Follow up: Response: No adverse reaction; RASS: Alert and Calm (0) kr3 11:00 Drug: Ketorolac 30 mg Route: IVP; Site: left antecubital; kr3 13:38 Follow up: Response: No adverse reaction kr3 Disposition Summary: 09/16/22 12:58 Discharge Ordered Location: Home sp3 Condition: Stable sp3 Diagnosis - Chest pain, unspecified sp3 Followup: sp3 - With: Private Physician - When: Upon discharge from the Emergency Department - Reason: Continuance of care Discharge Instructions: - Discharge Summary Sheet sp3 - Nonspecific Chest Pain, Adult sp3 Forms: - Medication Reconciliation Form sp3 - Thank You Letter sp3 - Antibiotic Education sp3 - Prescription Opioid Use sp3 Signatures: Dispatcher [employer] Jeana Mejía RN RN ld1 Nestor Patel MD MD sp3 Karen Hanley RN RN kr3
--- NOTE | 2022-09-16 12:59 | ER ---
Nurse's Notes [facility] Name: Shalini Roberts Age: 52 yrs Sex: Female : 1970 Arrival Date: 09/16/2022 Time: 08:48 Bed 8 Private MD: Diagnosis: Chest pain, unspecified Presentation: 09/16 08:59 Chief complaint: Patient states: CP began at 0600 this morning while fighting with ld1 - pain radiating down right arm. Coronavirus screen: At this time, the client does not indicate any symptoms associated with coronavirus-19. Ebola Screen: No symptoms or risks identified at this time. Initial Sepsis Screen: Does the patient meet any 2 criteria? No. Patient's initial sepsis screen is negative. Does the patient have a suspected source of infection? No. Patient's initial sepsis screen is negative. Risk Assessment: Do you want to hurt yourself or someone else? Patient reports no desire to harm self or others. Onset of symptoms was September 16, 2022. 08:59 Method Of Arrival: Ambulatory ld1 08:59 Acuity: ALEAH 3 ld1 Triage Assessment: 09:00 General: Appears in no apparent distress. uncomfortable, Behavior is anxious, crying, ld1 fussy. Pain: Complains of pain in chest Pain radiates to right arm Pain currently is 10 out of 10 on a pain scale. Quality of pain is described as sharp, shooting, Pain began suddenly, Is continuous. EENT: No signs and/or symptoms were reported regarding the EENT system. Neuro: Level of Consciousness is awake, alert, obeys commands, Oriented to person, place, time, situation. Cardiovascular: Capillary refill < 3 seconds Patient's skin is warm and dry. Cardiovascular: Reports chest pain. Respiratory: Airway is patent Respiratory effort is even, unlabored. GI: Abdomen is round non-distended. : No signs and/or symptoms were reported regarding the genitourinary system. Derm: No signs and/or symptoms reported regarding the dermatologic system. Musculoskeletal: No signs and/or symptoms reported regarding the musculoskeletal system. 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 - Social history:: Smoking status: Patient reports the use of cigarette tobacco products, smokes one-half pack cigarettes per day, Patient uses alcohol, on a daily basis. claims drinking about a 6 pack/day. Screenin:35 [facility] ED Fall Risk Assessment (Adult) History of falling in the last 3 months, kr3 including since admission No falls in past 3 months (0 pts) Confusion or Disorientation No (0 pts) Intoxicated or Sedated No (0 pts) Impaired Gait No (0 pts) Mobility Assist Device Used No (0 pt) Altered Elimination No (0 pt) Score/Fall Risk Level 0 - 2 = Low Risk Oriented to surroundings, Maintained a safe environment, Educated pt \T\ family on fall prevention, incl call for assistance when getting out of bed, Assessed \T\ reinforced patient's understanding of fall precautions, Hourly rounding (assess needs \T\ fall precautionary measures) done. Humpty Dumpty Scale Fall Assessment Tool (age< 18yrs) Age 13 years and above (1 pt) Gender Female (1 pt) Diagnosis Other diagnosis (1 pt) Cognitive Impairments Oriented to own ability (1 pt) Environmental Factors Outpatient area (1 pt) Response to Surgery/Sedation/Anesthesia More than 48 hours/ None (1 pt) Medication Usage Other medications/ None (1 pt). Abuse screen: Denies threats or abuse. Nutritional screening: No deficits noted. Tuberculosis screening: No symptoms or risk factors identified. Fall Risk No fall in past 12 months (0 pts). IV access (20 points). Total Bradford Fall Scale indicates No Risk (0-24 pts). Assessment: 09:28 General: Appears distressed, uncomfortable, Behavior is cooperative, anxious, restless. kr3 Pain: Complains of pain in right arm and chest. Neuro: Level of Consciousness is awake, alert, obeys commands, Oriented to person, place, time, situation. Cardiovascular: Patient's skin is warm and dry. Chest pain is located in right. Respiratory: Airway is patent Respiratory effort is even, unlabored, Respiratory pattern is regular, symmetrical. GI: No signs and/or symptoms were reported involving the gastrointestinal system. : No signs and/or symptoms were reported regarding the genitourinary system. EENT: No signs and/or symptoms were reported regarding the EENT system. Derm: Rash noted that is papular, on the lower abdominal area. Musculoskeletal: Circulation, motion, and sensation intact. Range of motion: intact in all extremities. 10:23 Reassessment: No changes from previously documented assessment. Patient and/or family kr3 updated on plan of care and expected duration. Pain level reassessed. Patient is alert, oriented x 3, equal unlabored respirations, skin warm/dry/pink. patient is still complaining of pain in the upper right shoulder/chest area. When entering the room and at bedside the patient is calm and not hollering. Once I step away from the room the patient starts to holler out . 11:58 Reassessment: Patient and/or family updated on plan of care and expected duration. Pain kr3 level reassessed. Patient is alert, oriented x 3, equal unlabored respirations, skin warm/dry/pink. patient c/o pain now in the right groin area. 13:31 Reassessment: Patient and/or family updated on plan of care and expected duration. Pain kr3 level reassessed. Patient is alert, oriented x 3, equal unlabored respirations, skin warm/dry/pink. patient left lateral with eyes closed. 13:32 Reassessment: patient has no complaint until I woke her up, patient has been sleeping kr3 since last medication was given. When pt woke up and found out she was discharged she started having pain immediately . Vital Signs: 08:59 BP 144 / 106; Pulse 87; Resp 18; Temp 99.2(O); Pulse Ox 97% on R/A; Weight 81.65 kg; ld1 Height 5 ft. 0 in. (152.40 cm); Pain 10/10; 10:22 BP 114 / 68; Pulse 68; Resp 18; Pulse Ox 100% on R/A; kr3 11:30 BP 120 / 66; Pulse 63; Resp 18; Pulse Ox 99% on R/A; kr3 12:30 BP 127 / 70; Pulse 66; Resp 16; Pulse Ox 99% on R/A; kr3 13:30 BP 131 / 92; Pulse 71; Resp 17; Pulse Ox 100% on R/A; kr3 08:59 Body Mass Index 35.15 (81.65 kg, 152.40 cm) ld1 ED Course: 08:48 Patient arrived in ED. as 08:54 Nestor Patel MD is Attending Physician. sp3 09:00 Triage completed. ld1 09:00 Arm band placed on right wrist. ld1 09:28 Karen Hanley, RN is Primary Nurse. kr3 09:30 Client placed on continuous cardiac and pulse oximetry monitoring. NIBP monitoring kr3 applied. 09:30 Bed in low position. Call light in reach. Side rails up X 1. kr3 09:31 her not be allowed in the room or to get information. kr3 09:32 Inserted saline lock: 22 gauge in left antecubital area, using aseptic technique. Blood kr3 collected. 09:33 XRAY Chest (1 view) In Process Unspecified. EDMS 13:37 No provider procedures requiring assistance completed. IV discontinued, intact, kr3 bleeding controlled, No redness/swelling at site. Pressure dressing applied. 13:38 Patient maintains SpO2 saturation greater than 95% on room air. kr3 Administered Medications: 09:41 Drug: morphine 2 mg Route: IVP; Infused Over: 4 mins; Site: left antecubital; kr3 13:38 Follow up: Response: No adverse reaction; RASS: Alert and Calm (0) kr3 11:00 Drug: Ketorolac 30 mg Route: IVP; Site: left antecubital; kr3 13:38 Follow up: Response: No adverse reaction kr3 Medication: 13:38 VIS not applicable for this client. kr3 Outcome: 12:58 Discharge ordered by . sp3 13:37 Discharged to home ambulatory. kr3 13:37 Condition: stable 13:37 Discharge instructions given to patient, Instructed on discharge instructions, follow up and referral plans. Demonstrated understanding of instructions, follow-up care. 13:37 Patient left the ED. ld1 Signatures: Dispatcher [employer] EDMS Philomena Perez Lauren, RN RN ld1 Nestor Patel MD MD sp3 Karen Hanley, ZAIDA RN kr3
[2022-09-16 13:56] VITALS: TEMP 99.2
[2022-09-16 14:05] VITALS: BP 131/92; O2SAT 100
--- NOTE | 2022-09-17 12:55 | EKG ---
Test Date: 2022-09-16 Test Time: 09:03:10 Gun Number: WILLIAMS MEASUREMENT RESULTS: Intervals: Rate: 73 [place]: 126 QRSD: 70 QT: 376 QTc: 414 [place]: P: 49 NJ: 126 QRS: 80 T: 59 INTERPRETIVE STATEMENTS: Normal sinus rhythm Normal ECG Compared to ECG 10/28/2020 11:13:28 No significant changes Electronically Signed On 09-17-22 12:52:23 CAR CONDITIONER by Victoriano Samayoa
== END 2022-09-16 13:37 | disposition home or self-care (01) ==
LOC: ER 08:46
DX: R07.9 Chest pain, unspecified (principal); F17.210 Nicotine dependence, cigarettes, uncomplicated; Z88.0 Allergy status to penicillin; Z88.5 Allergy status to narcotic agent
CPT/HCPCS: 36415; 71045; 80048; 80076; 83880; 84484; 85025; 85610; 93005; 96374; 96375; 99284; J2270

== ENCOUNTER 2024-11-17 09:10 | Emergency (ER) | payer SELFPAY ==
[2024-11-17 09:42] LABS: Absolute Lymphocytes (CBC) 1.1 K/uL (0.7-4.9); Absolute Monocytes 0.6 K/uL (0.1-1.3); Absolute Neutrophil 2.2 K/uL (1.8-8.0); Basophils % 0.7 % (0-1.3); Eosinophils % 0.7 % (0-4.4); Hematocrit 43.6 % (36.0-45.0); Hemoglobin 14.6 g/dL (12.0-15.0); MCH 29.5 pg (27.0-35.0); MCHC 33.5 g/dL (32.0-36.0); MPV 8.3 fL (7.6-11.3); Monocytes % 15.9 % (3.3-12.3); Neutrophils % 54.7 % (41.7-73.7); Nucleated Red Blood Cells % 0.2 % (0-0); Platelets 208 thou/uL (152-406); RBC Red Blood Cell Count 4.95 M/uL (3.86-4.86); Red Cell Distribution Width 13.5 % (12.1-15.2)
[2024-11-17 09:57] LABS: Albumin 3.2 g/dL (3.4-5.0); Albumin/Globulin Ratio 0.7 (1.1-1.8); Anion Gap 11.2 mEq/L (5.0-15.0); Bilirubin Total 0.7 mg/dL (0.2-1.0); Globulin 4.4 g/dL (2.3-3.5); Potassium 3.2 mEq/L (3.5-5.1); Protein, Total 7.6 g/dL (6.4-8.2)
[2024-11-17] MEDS ORDERED: ONDANSETRON 4 MG/2 ML VIAL ONE (10:00)
[2024-11-17] MEDS ORDERED: NA CHLORIDE 0.9% 1,000 ML ONE (10:01)
[2024-11-17] MEDS ORDERED: KETOROLAC 30 MG/ML INJ ONE (10:01)
[2024-11-17 10:06] LABS: SARS-CoV-2 Antigen CONTROL BLUE LINE VIS/BG OK; SARS-CoV-2 Antigen Rapid Res Negative (Negative)
--- NOTE | 2024-11-17 10:35 | RAD REPORT ---
EXAMINATION: CT ABDOMEN AND PELVIS WITH CONTRAST CLINICAL INDICATION: ABD PAIN TECHNIQUE: CT abdomen and pelvis was performed, after the administration of IV contrast, [facility]. Axial, sagittal and coronal reconstructions were obtained. One or more of the following dose reduction techniques were used: Automated exposure control, adjustment of the mA and k V according to patient size, and iterative reconstruction. Unless otherwise specified, incidental findings do not require dedicated imaging follow-up. COMPARISON: 10/28/2020 FINDINGS: LOWER CHEST: The visualized lung bases are clear. LIVER: Mild fatty liver is present. No focal lesion or biliary dilatation is seen. Cholecystectomy clips. SPLEEN: Normal size. No focal lesion. PANCREAS: No mass, ductal dilation, or carmela-pancreatic fluid. ADRENALS: Normal; no mass. KIDNEYS: Normal size and contour. No hydronephrosis. GASTROINTESTINAL TRACT: No evidence of free air, significant intra-abdominal free fluid, bowel obstru ction or abscess. There is mild diverticulosis coli of the sigmoid colon without diverticulitis. APPENDIX: Normal appendix. LYMPH NODES: No lymphadenopathy. MUSCULOSKELETAL: No acute or suspicious osseous abnormality. ADDITIONAL FINDINGS: None. IMPRESSION: No acute or concerning abnormalities seen in the abdomen or pelvis.
[2024-11-17 11:52] LABS: Urine Bacteria <20 /HPF (<20); Urine Bilirubin NEGATIVE (Negative); Urine Blood Trace (Negative); Urine Clarity Clear (Clear); Urine Color Light-Yellow (Yellow); Urine Culture Reflex Order NOT NEEDED; Urine Glucose NEGATIVE (Negative); Urine Ketones 2+ (Negative); Urine Microscopic Reflex YN ORDER UMIC; Urine Mucus Slight /HPF (None Seen); Urine Nitrite NEGATIVE (Negative); Urine Protein NEGATIVE (Negative); Urine Urobilinogen Normal (Normal); Urine WBC <5 /HPF (<5)
[2024-11-17 11:54] LABS: Specific Gravity > 1.030 (1.005-1.030)
--- NOTE | 2024-11-17 12:07 | ER ---
Nurse's Notes [facility] Name: Shalini Roberts Age: 54 yrs Sex: Female : 1970 Arrival Date: 11/17/2024 Time: 09:10 Bed 8 Private MD: Diagnosis: Low back pain;Nausea with vomiting, unspecified;Diarrhea, unspecified Presentation: 11/17 09:14 Chief complaint: EMS states: LEFT FLANK PAIN WITH N/V x4 DAYS. Coronavirus screen: At bp this time, the client does not indicate any symptoms associated with coronavirus-19. Ebola Screen: No symptoms or risks identified at this time. Initial Sepsis Screen: Does the patient meet any 2 criteria? No. Patient's initial sepsis screen is negative. Does the patient have a suspected source of infection? No. Patient's initial sepsis screen is negative. Risk Assessment: Do you want to hurt yourself or someone else? Patient reports no desire to harm self or others. Onset of symptoms is unknown. Care prior to arrival: Medication(s) given: Normal saline infusion, 1000 mL, IV initiated. 20 GA, in the right antecubital area, Glucose check: 118. 09:14 Method Of Arrival: EMS: [facility] bp 09:14 Acuity: ALEAH 3 bp Triage Assessment: 09:15 General: Appears distressed, uncomfortable, obese, unkempt, Behavior is cooperative, bp appropriate for age, anxious. Pain: Complains of pain in left flank. EENT: No deficits noted. Neuro: No deficits noted. Cardiovascular: No deficits noted. Respiratory: No deficits noted. GI: No deficits noted. : Reports pain in left flank(s). Derm: No deficits noted. Musculoskeletal: No deficits noted. Historical: - Allergies: 09:15 Codeine; bp 09:15 PENICILLINS; bp - PMHx: 09:15 chronic back pain; bp - PSHx: 09:15 section; bp - Immunization history:: Adult Immunizations up to date. - Infectious Disease History:: Denies. - Social history:: Smoking status: Patient reports the use of cigarette tobacco products, unknown amount. Screenin:44 [facility] ED Fall Risk Assessment (Adult) History of falling in the last 3 months, bp including since admission No falls in past 3 months (0 pts) Confusion or Disorientation No (0 pts) Intoxicated or Sedated No (0 pts) Impaired Gait No (0 pts) Mobility Assist Device Used No (0 pt) Altered Elimination No (0 pt) Score/Fall Risk Level 0 - 2 = Low Risk Oriented to surroundings. Abuse screen: Denies threats or abuse. Denies injuries from another. Nutritional screening: No deficits noted. Tuberculosis screening: No symptoms or risk factors identified. Assessment: 11:44 Reassessment: Patient appears in no apparent distress at this time. Patient is alert, bp oriented x 3, equal unlabored respirations, skin warm/dry/pink. Vital Signs: 09:14 BP 138 / 80; Pulse 95; Resp 16; Temp 98.8; Pulse Ox 99% ; Weight 86.18 kg; Height 5 ft. bp 0 in. ; 10:41 BP 119 / 80; Pulse 70; Resp 16; Pulse Ox 97% ; ko1 11:43 BP 117 / 71; Pulse 68; Resp 16; Pulse Ox 98% ; bp 09:14 Body Mass Index 37.11 (86.18 kg, 152.4 cm) bp ED Course: 09:11 Patient arrived in ED. [id number] 09:12 Nigel Hart MD is Attending Physician. ec2 09:13 Alecia Deras FNP-C [facility] kb 09:14 Charli Lopez, ZAIDA is Primary Nurse. bp 09:15 Triage completed. bp 09:15 Arm band placed on. bp 09:16 Maintain EMS IV. Dressing intact. Good blood return noted. Site clean \T\ dry. Gauge \T\ bp site: 20 GA RAC. 09:32 Initial lab(s) drawn, by me, sent to lab. COVID swab sent to lab. Flu and/or RSV swab em1 sent to lab. Inserted saline lock: 22 gauge in right antecubital area, using aseptic technique. Blood collected. Flushed with 10 mL NS. 09:32 SARS-COV-2 Antigen Rapid Sent. em1 09:32 Flu Sent. em1 09:32 CBC with Diff Sent. em1 09:32 CMP Sent. em1 09:32 Lipase Sent. em1 10:25 CT Abd/Pelvis - IV Contrast Only In Process Unspecified. EDMS 11:44 Patient has correct armband on for positive identification. bp 12:14 Provided Education on: discharge. ko1 12:14 No provider procedures requiring assistance completed. IV discontinued, intact, ko1 bleeding controlled, No redness/swelling at site. Pressure dressing applied. Administered Medications: 10:05 Drug: TORadol - Ketorolac IVP 15 mg IVP once Route: IVP; Site: right antecubital; bp 10:05 Drug: Ondansetron IVP 4 mg IVP once; over 2 minutes Route: IVP; Site: right antecubital;bp 10:05 Drug: NS 0.9% IV 1000 ml IV at 1 bolus Per protocol; to be given as a bolus over 60 bp minutes Route: IV; Rate: 1 bolus; Site: right antecubital; Medication: 11:44 VIS not applicable for this client. bp Outcome: 12:07 Discharge ordered by . kb 12:14 Discharged to home ambulatory, ko1 12:14 Condition: stable 12:14 Discharge instructions given to patient, Instructed on discharge instructions, follow up and referral plans. medication usage, Demonstrated understanding of instructions, follow-up care, medications, Prescriptions given X 2, 12:19 Patient left the ED. ko1 Signatures: Dispatcher [employer] EDAlecia León, CHAIR INSPECTOR AND LEVELER-C CHAIR INSPECTOR AND LEVELER-Solomon Rosado em1 Charli Lopez, RN RN Jolene [email or web address] Jessie Reddy, ZAIDA RN ko1 Nigel Hart MD MD ec2
--- NOTE | 2024-11-17 12:07 | EDPHYS ---
Physician Documentation [facility] Name: Shalini Roberts Age: 54 yrs Sex: Female : 1970 Arrival Date: 11/17/2024 Time: 09:10 Bed 8 Private MD: ED Physician Nigel Hart HPI: 11/17 09:35 This 54 yrs old Female presents to ER via EMS with complaints of Low kb Back Pain. 09:35 Pt is a 54 year old female who presents for nausea, vomiting, diarrhea, and "kidney kb pain" that started 4 days ago. States they did some carpet installation and the symptoms started after that for her and her . Spouse has similar symptoms. Reports slight cough and congestion as well. Unknown if she has had a fever. Reports dark urine, but hasn't tolerated anything by mouth in a couple of days. . Historical: - Allergies: 09:15 Codeine; bp 09:15 PENICILLINS; bp - PMHx: 09:15 chronic back pain; bp - PSHx: 09:15 section; bp - Immunization history:: Adult Immunizations up to date. - Infectious Disease History:: Denies. - Social history:: Smoking status: Patient reports the use of cigarette tobacco products, unknown amount. ROS: 09:35 Constitutional: As per HPI kb Exam: 09:35 Constitutional: This is a well developed, well nourished patient who is awake, alert, kb and in no acute distress. Head/Face: Normocephalic, atraumatic. ENT: Moist Mucous membranes Cardiovascular: Regular rate Respiratory: Respirations even and unlabored. No increased work of breathing. Talking in full sentences Back: No spinal tenderness. No costovertebral tenderness. Full range of motion. Skin: Warm, dry with normal turgor. Normal color. MS/ Extremity: Pulses equal, no cyanosis. Neurovascular intact. Full, normal range of motion. Neuro: Awake and alert, GCS 15, oriented to person, place, time, and situation. 09:35 Abdomen/GI: Inspection: abdomen appears normal, Bowel sounds: normal, Palpation: soft, in all quadrants, moderate abdominal tenderness, in the left upper quadrant, Vital Signs: 09:14 BP 138 / 80; Pulse 95; Resp 16; Temp 98.8; Pulse Ox 99% ; Weight 86.18 kg; Height 5 ft. bp 0 in. ; 10:41 BP 119 / 80; Pulse 70; Resp 16; Pulse Ox 97% ; ko1 11:43 BP 117 / 71; Pulse 68; Resp 16; Pulse Ox 98% ; bp 09:14 Body Mass Index 37.11 (86.18 kg, 152.4 cm) bp MDM: 09:13 Medical Screening Exam initiated kb 12:04 Data reviewed: vital signs, nurses notes. kb 12:06 Differential diagnosis: UTI, gastroenteritis, colitis, diverticulitis. Historians other kb than the Patient: EMS: [facility]. Counseling: I had a detailed discussion with the patient and/or guardian regarding the historical points, exam findings, and any diagnostic results supporting the discharge/admit diagnosis, lab results, radiology results, the need for outpatient follow up, a family practitioner, to return to the emergency department if symptoms worsen or persist or if there are any questions or concerns that arise at home. 11/17 09:14 Order name: CBC with Diff; Complete Time: 09:45 kb 11/17 09:14 Order name: CMP kb 11/17 09:14 Order name: Lipase kb 11/17 09:14 Order name: Urinalysis w/ reflexes; Complete Time: 12:04 kb 11/17 09:14 Order name: Flu; Complete Time: 10:11 kb 11/17 09:14 Order name: SARS-COV-2 Antigen Rapid; Complete Time: 10:11 kb 11/17 09:14 Order name: CT Abd/Pelvis - IV Contrast Only; Complete Time: 10:50 kb 11/17 09:14 Order name: IV Saline Lock; Complete Time: 09:17 kb 11/17 09:14 Order name: Labs collected and sent; Complete Time: 09:32 kb 11/17 11:40 Order name: PO challenge; Complete Time: 11:43 kb Administered Medications: 10:05 Drug: TORadol - Ketorolac IVP 15 mg IVP once Route: IVP; Site: right antecubital; bp 10:05 Drug: Ondansetron IVP 4 mg IVP once; over 2 minutes Route: IVP; Site: right antecubital;bp 10:05 Drug: NS 0.9% IV 1000 ml IV at 1 bolus Per protocol; to be given as a bolus over 60 bp minutes Route: IV; Rate: 1 bolus; Site: right antecubital; Disposition Summary: 11/17/24 12:07 Discharge Ordered Notes: Location: Home kb Condition: Stable kb Diagnosis - Low back pain kb - Nausea with vomiting, unspecified kb - Diarrhea, unspecified kb Followup: kb - With: Emergency Department - When: As needed - Reason: Worsening of condition Followup: kb - With: Private Physician - When: 2 - 3 days - Reason: Recheck today's complaints, Continuance of care, Re-evaluation by your physician Discharge Instructions: - Discharge Summary Sheet kb - Food Choices to Help Relieve Diarrhea, Adult kb - Viral Gastroenteritis, Adult, [id number] kb Forms: - Medication Reconciliation Form kb - Antibiotic Education kb - Prescription Opioid Use kb - Patient Portal Instructions kb - Leadership Thank You Letter kb Prescriptions: - Zofran 4 mg Oral tablet - take 1 tablet ORAL route every 6 hours As needed; 12 tablet; Refills: 0, kb Product Selection Permitted - dicyclomine 20 mg Oral tablet - take 1 tablet ORAL route 4 times per day As needed; 20 tablet; Refills: 0, kb Product Selection Permitted Signatures: Dispatcher [employer] EDPA Alecia Deras, GUN BARREL FINISHER-C G[employer] BARREL FINISHER-Charli Marin, RN RN bp Corrections: (The following items were deleted from the chart) 11:35 09:35 Pt is a 54 year old female who presents for nausea, vomiting, diarrhea, and kb "kidney pain" that started 4 days ago. States they did some carpet installation and the symptoms started after that. Spouse has similar symptoms. Reports slight cough and congestion as well. Unknown if she has had a fever. Reports dark urine, but hasn't tolerated anything by mouth in a couple of days. . kb
[2024-11-17 12:23] VITALS: TEMP 98.8
[2024-11-17 12:25] VITALS: BP 117/71; O2SAT 98
== END 2024-11-17 12:19 | disposition home or self-care (01) ==
LOC: ER 09:10
DX: M54.50 Low back pain, unspecified (principal); R11.2 Nausea with vomiting, unspecified; R19.7 Diarrhea, unspecified; Z72.0 Tobacco use
CPT/HCPCS: 36415; 74177; 80053; 81001; 83690; 85025; 87804; 87811; 96374; 96375; 99284; J2405; J7030; Q9967

== ENCOUNTER 2025-06-23 19:49 | Emergency (ER) | payer OTHER ==
--- OUTSIDE RECORDS SUMMARY | 2025-06-23 20:03 | XMS REPORT | Continuity of Care Document ---
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 He gets out of bed and sleeps on the floor and she wakes up in urine. NSO Glass RN [facility] - [facility] 2023-12-09 13:53:00 [facility] Emergency Department Note Patient Name: Shan Roberts Date of : 1970 53 year old female Treatment Room: [facility] ED [facility] [place] Primary Care Physician: PATIENT DOES NOT HAVE A PCP Patient Escorted by: Self [9] Mode of Arrival: Personal means [1] EMS Treatment Prior to ED Arrival: Travel and Exposure Screening: Symptoms Does patient have any of these symptoms?: (not recorded) Exposure Screening Has patient had contact with someone with a communicable disease in the last month?: (not recorded) Diseases exposed to:: (not recorded) Is Patient ?: (not recorded) Exposure Date: (not recorded) Chief Complaint: Chief Complaint Patient presents with Numbness History of Present Illness: HPI 53yo F presents today with left facial numbness and burning that radiates all the way down to her left side her body. She states she is also here because she is concerned that her "pees me every night" and she explains they sleep on air mattress and he urinates on the bed and so she sleeps in his pee every night and has all the pimples everywhere and is worried about the ammonia causing infection. She states [facility] now [facility] Past Medical History/Immunizations: No past medical history on file. Allergies: Allergies Allergen Reactions Codeine Hives Pcn [Penicillins] Hives Past Social History: Substance & Sexual Activity No substance use or sexual activity history on file. Past Surgical History: No past surgical history on file. Review of Systems: Review of Systems Constitutional: Negative for activity change, diaphoresis, fatigue, fever and weight gain. HENT: Negative for congestion, ear pain, rhinorrhea, sore throat, tinnitus and trouble swallowing. Eyes: Negative for discharge and visual disturbance. Respiratory: Negative for cough and chest tightness. Breasts: Negative for pain. Cardiovascular: Negative for chest pain and palpitations. Gastrointestinal: Negative for abdominal pain, nausea and vomiting. Genitourinary: Negative for dysuria, hematuria and difficulty urinating. Musculoskeletal: Negative for joint swelling. Skin: Positive for rash. Negative for wound. Neurological: Positive for numbness. Negative for dizziness and headaches. Psychiatric/Behavioral: Negative for agitation and confusion. The patient is not nervous/anxious. Hematological: Does not bruise/bleed easily. Endocrine: Negative for weight gain. Physical Exam: ED Triage Vitals [12/09/23 1404] Weight 81.6 kg (180 lb) Actual or estimated Height 1.524 m (5') BP (!) 147/87 Pulse 88 Resp 18 Temp 36.3 ?C (97.3 ?F) Temp src SpO2 99 % Measured on Physical Exam Vitals reviewed. Constitutional: Appearance: She is well-developed. She is obese. HENT: Head: Normocephalic and atraumatic. Eyes: Conjunctiva/sclera: Conjunctivae normal. Cardiovascular: Rate and Rhythm: Normal rate and regular rhythm. Heart sounds: Normal heart sounds. No murmur heard. Pulmonary: Effort: Pulmonary effort is normal. Breath sounds: Normal breath sounds. No stridor. Abdominal: General: Bowel sounds are normal. Palpations: Abdomen is soft. Tenderness: There is no abdominal tenderness. Musculoskeletal: General: Normal range of motion. Cervical back: Neck supple. Skin: General: Skin is warm and dry. Capillary Refill: Capillary refill takes less than 2 seconds. Comments: Pimples all over her abdominal pannus no abscess noted Neurological: Mental Status: She is alert and oriented to person, place, and time. Cranial Nerves: No cranial nerve deficit. Psychiatric: Behavior: Behavior normal. Radiology: No orders to display Lab Results: Lab Results URINALYSIS - Abnormal Result Value Ref Range APPEARANCE Hazy (*) Clear COLOR Yellow Yellow PH 5.0 4.8 - 8.0 SP GRAVITY 1.019 1.003 - 1.030 GLU U QUAL Normal Normal BLOOD Negative Negative KETONES Negative Negative PROTEIN Negative Negative UROBILIN Normal Normal BILIRUBIN Negative Negative NITRITE Negative Negative LEUK VIKRAM Negative Negative RBC/HPF 11 (*) 0 - 3 HPF WBC/HPF 4 0 - 5 HPF BACTERIA Few (*) Negative MUCOUS Moderate (*) Negative LPF SQ EPITH 3 HPF CBC WITH DIFF - Abnormal WBC 11.53 (*) 4.30 - 11.10 10*3/?L RBC 4.66 3.93 - 5.25 10*6/?L HGB 14.0 11.6 - 15.0 g/dL HCT 41.2 35.7 - 45.2 % MCV 88.4 80.6 - 95.5 fL MCH 30.0 25.9 - 32.8 pg MCHC 34.0 31.6 - 35.1 g/dL RDW-SD 41.8 39.0 - 49.9 fL RDW-CV 12.9 12.0 - 15.5 % PLT 339 166 - 358 10*3/?L MPV 9.9 9.5 - 12.9 fL NRBC/100 WBC 0.0 0.0 - 10.0 /100 WBCs NRBC x10 3 <0.01 10*3/?L GRAN MAT (NEUT) % 73.4 % IMM GRAN % 0.30 % LYMPH % 17.6 % MONO % 7.1 % EOS % 1.0 % BASO % 0.6 % GRAN MAT x10 3 (ANC) 8.47 (*) 1.88 - 7.09 10*3/uL IMM GRAN x10 3 0.03 0.00 - 0.06 10*3/uL LYMPH x10 3 2.03 1.32 - 3.29 10*3/uL MONO x10 3 0.82 0.33 - 0.92 10*3/uL EOS x10 3 0.11 0.03 - 0.39 10*3/uL BASO x10 3 0.07 0.01 - 0.07 10*3/uL COMP. METABOLIC PANEL (98834) - Abnormal NA 140 135 - 145 mmol/L K 4.2 3.5 - 5.0 mmol/L CL 110 (*) 98 - 108 mmol/L CO2 TOTAL 24 23 - 31 mmol/L AGAP 6 2 - 16 BUN 15 7 - 23 mg/dL GLUCOSE 120 (*) 70 - 110 mg/dL CREATININE 0.78 0.50 - 1.04 mg/dL TOTAL BILI 0.9 0.1 - 1.1 mg/dL CALCIUM 9.4 8.6 - 10.6 mg/dL T PROTEIN 8.4 (*) 6.3 - 8.2 g/dL ALBUMIN 4.4 3.5 - 5.0 g/dL ALK PHOS 86 34 - 122 U/L ALTv 28 5 - 35 U/L AST(SGOT) 34 13 - 40 U/L eGFR 89.8 mL/min/1.73m2 EKG: If EKG completed, see Procedure Note. Orders and Treatments: Orders Placed This Encounter Procedures Urinalysis Cbc with Diff Comp. Metabolic Panel (39199) Orders Placed This Encounter Medications ketorolac (TORADOL) injection 15 mg gabapentin (NEURONTIN) capsule 300 mg gabapentin 100 mg capsule clindamycin 150 mg capsule First Provider Eval: ED Events Date/Time Event User Comments 12/09/23 1412 Medical Screening Begins CARLYN CASTILLO MD -- 12/09/23 1412 First Provider Evaluation CARLYN CASTILLO MD -- ED COURSE Diagnosis/Impression as of 12/09/23 1557 Dysuria Dermatitis Facial numbness Neuropathy Procedures: Procedures MDM: Medical Decision Making Mild neuropathy possible DM vs anxiety Will give gabapentin as trial UA no infection Labs show elevated sugar Recommend seeing PCP for diabetes Rash/dermatitis give clindamycin discharge Problems Addressed: Dermatitis: acute illness or injury with systemic symptoms Dysuria: undiagnosed new problem with uncertain prognosis Facial numbness: acute illness or injury with systemic symptoms Neuropathy: acute illness or injury with systemic symptoms Amount and/or Complexity of Data Reviewed Labs: ordered. Risk Prescription drug management. Flowsheet Documentation: Scoring Tools: No data recorded Disposition/Condition: ED Disposition ED Disposition Disch - Home Condition Stable Comment -- Discharge Medications: Patient's Medications START taking these medications CLINDAMYCIN 150 MG CAPSULE Take 1 capsule by mouth 4 (four) times daily for 5 days. GABAPENTIN 100 MG CAPSULE Take 1 capsule by mouth in the morning. CONTINUE taking these medications which have NOT CHANGED CETIRIZINE HCL (ZYRTEC ORAL) Take by mouth. IBUPROFEN 800 MG TABLET Take 1 tablet by mouth every 8 (eight) hours as needed (PAIN). METRONIDAZOLE 500 MG TABLET Take 1 tablet by mouth 2 (two) times daily. ONDANSETRON (ZOFRAN, HYDROCHLORIDE,) 4 MG TABLET Take 1 tablet by mouth every 8 (eight) hours as needed for Nausea and Vomiting (N/V). PHENAZOPYRIDINE 200 MG TABLET Take 1 tablet by mouth 3 (three) times daily. PROMETHAZINE 25 MG TABLET Take 1 tablet by mouth every 6 (six) hours as needed for Nausea and Vomiting (N/V). SULFAMETHOXAZOLE-TRIMETHOPRI M 800-160 MG PER TABLET Take 1 tablet by mouth every 12 (twelve) hours. TRAMADOL (ULTRAM) 50 MG TABLET Take 1 tablet by mouth every 6 (six) hours as needed for Pain (scale 4-6). START taking Modified Medications as Prescribed No medications on file STOP taking these medications No medications on file Follow-up: Electronically signed by: Carlyn Castillo DO 12/09/23 1557 [facility] 2016-04-07 16:38:00 Study: Lumbar spine, 5 views Clinical Indication: M54.5 Low back pain Comparison: None FINDINGS: Multiple views of the lumbar spine show 5 nonrib-bearing lumbar vertebra. No acute compression fracture or subluxation is seen. Intervertebral disc spaces are well-maintained. No pars interarticularis defects are seen. Soft tissues are unremarkable. IMPRESSION: No significant abnormality of the lumbar spine. SL: [id number] Yue
[2025-06-23] MEDS ORDERED: MECLIZINE HCL 12.5 MG TAB ONE (21:26)
[2025-06-23] MEDS ORDERED: NA CHLORIDE 0.9% 1,000 ML ONE (21:26)
[2025-06-23 21:33] LABS: Absolute Lymphocytes (CBC) 2.1 K/uL (0.7-4.9); Hematocrit 40.3 % (36.0-45.0); Hemoglobin 13.5 g/dL (12.0-15.0); MCH 28.9 pg (27.0-35.0); MCHC 33.4 g/dL (32.0-36.0); MCV 86.6 fL (80-100); MPV 8.3 fL (7.6-11.3); Nucleated RBC Absolute Count 0.0 (0-0); Nucleated Red Blood Cells % 0.1 % (0-0); RBC Red Blood Cell Count 4.66 M/uL (3.86-4.86); White Blood Count 8.40 thou/uL (4.3-10.9)
--- NOTE | 2025-06-23 21:41 | RAD REPORT ---
EXAM: Chest Single View HISTORY: 55 years Female dizziness COMPARISON: 09/16/2022 FINDINGS: LUNGS/PLEURA: The lungs are clear. No pleural effusions or pneumothorax. No pulmonary edema. CARDIAC/MEDIASTINUM: The cardiac silhouette is within normal limits. UPPER ABDOMEN: No significant abnormality. BONES: No acute abnormality. LINES/TUBES/OTHER: N/A IMPRESSION: No evidence of acute cardiopulmonary disease.
[2025-06-23 21:42] LABS: PT Prothrombin Time 11.7 SECONDS (10-13.0); Protime INR 1.04
[2025-06-23 21:56] LABS: Sqamous Epithelial <5 /HPF (None Seen); Urine Culture Reflex Order NOT NEEDED; Urine Microscopic Reflex YN ORDER UMIC
[2025-06-23 21:57] LABS: Anion Gap 8.8 mEq/L (5.0-15.0); BUN Blood Urea Nitrogen 16.0 mg/dL (7-18); Glucose Level 107.0 mg/dL (74-106); Magnesium 2.4 mg/dL (1.6-2.4); Potassium 3.8 mEq/L (3.5-5.1); Troponin High Sensitivity 3.4 pg/mL (<58.9)
--- NOTE | 2025-06-23 22:26 | RAD REPORT ---
EXAMINATION: Head Brain Wo Cont CLINICAL INDICATION: Female, 55 years old.DIZZINESS TECHNIQUE: Axial CT images from the skull base to the vertex without intravenous contrast. Coronal an d sagittal reformatted images were created from the data set. One or more of the following dose reduction techniques were used: Automated exposure control, adjustment of the mA and/or kV according to patient size, and/or iterative reconstruction. Unless otherwise specified, incidental findings do not require dedicated imaging follow-up. [id number]. COMPARISON: No prior exams FINDINGS: INTRACRANIAL: No acute intracranial hemorrhage. No acute large vascular territory infarct. No hydroce phalus. No mass effect or midline shift. No significant white matter disease. VASCULATURE: No visualized abnormalities in the arteries or dural venous sinuses. SCALP/SKULL: No calvarial fracture identified. No acute soft tissue abnormality. SINUSES: The visualized paranasal sinuses are mostly clear. No significant mastoid fluid. IMPRESSION: No acute intracranial abnormality.
--- NOTE | 2025-06-23 22:29 | RAD REPORT ---
EXAMINATION: Neck Angio CLINICAL INDICATION: Female, 55 years old. dizziness TECHNIQUE: Axial CT images were obtained from the aortic arch to the skull base after intravenous con trast utilizing angiographic protocol with 3D post-processing (maximum intensity projection images, volume rendered images and/or shaded surface rendered images). One or more of the following dose redu ction techniques were used: Automated exposure control, adjustment of the mA and/or kV according to patient size, and/or iterative reconstruction. Unless otherwise specified, incidental findings do not require dedicated imaging follow-up. [id number]. NASCET criteria used. Mild 0-49% stenosis Moderate 50-69% stenosis Severe 70-99% stenosis COMPARISON: No prior exam. FINDINGS: AORTA: Normal RIGHT: - CCA: No flow limiting stenosis (>= 50%). No dissection. - ICA: No flow limiting stenosis (>= 50%). No dissection. - ECA: No flow limiting stenosis (>= 50%). No dissection. LEFT: - CCA: No flow limiting stenosis (>= 50%). No dissection. - ICA: No flow limiting stenosis (>= 50%). No dissection. - ECA: No flow limiting stenosis (>= 50%). No dissection. VERTEBRAL: Patent SOFT TISSUE: No significant neck soft tissue abnormalities. The visualized lung apices are clear. 3D images confirm these findings. IMPRESSION: No arterial dissection or stenosis identified within the neck.
--- NOTE | 2025-06-23 22:31 | RAD REPORT ---
EXAMINATION: Head angio CLINICAL INDICATION: Female, 55 years old. DIZZINESS TECHNIQUE: Axial CT images were obtained through the head after intravenous contrast utilizing angiog raphic protocol with 3D post-processing (maximum intensity projection images, volume rendered images and/or shaded surface rendered images). One or more of the following dose reduction technique s were used: Automated exposure control, adjustment of the mA and/or kV according to patient size, and/or iterative reconstruction. Unless otherwise specified, incidental findings do not require dedic ated imaging follow-up. COMPARISON: No prior exam. FINDINGS: RIGHT: ICA: No aneurysm, stenosis, or occlusion. TONJA: No aneurysm, stenosis, or occlusion. MCA: No aneurysm, stenosis, or occlusion. INTERNAL CORROSION SPECIALIST: No aneurysm, stenosis, or occlusion. LEFT: ICA: No aneurysm, stenosis, or occlusion. TONJA: No aneurysm, stenosis, or occlusion. MCA: No aneurysm, stenosis, or occlusion. INTERNAL CORROSION SPECIALIST: No aneurysm, stenosis, or occlusion. Vertebrobasilar: The vertebral arteries are patent. The basilar artery is normal in appearance. 3D images confirm these findings. IMPRESSION: No occlusion, aneurysm, or hemodynamically significant stenosis identified.
[2025-06-24] MEDS ORDERED: KETOROLAC 30 MG/ML INJ ONE (00:25)
[2025-06-24] MEDS ORDERED: METOCLOPRAMIDE 10 MG/2mL INJ ONE (00:25)
[2025-06-24] MEDS ORDERED: DIPHENHYDRAMINE 50 MG/ML VIAL ONE (00:25)
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
--- NOTE | 2025-06-24 01:01 | EDPHYS ---
Physician Documentation [facility] Name: Shalini Roberts Age: 55 yrs Sex: Female : 1970 Arrival Date: 06/23/2025 Time: 19:49 Bed 19 Private MD: ED Physician Don Mendez HPI: 06/23 20:22 This 55 yrs old Female presents to ER via EMS with complaints of cp Numbness, Dizziness. 20:22 The patient's problem is reported as Patient is a 55-year-old female with history of cp chronic back pain who presents to the emergency department with complaints of numbness to left side of face, dizziness that started yesterday about 9:00. Patient complains of headache and chest pain. Patient reports weakness that is generalized, nausea. Patient denies fever, shortness of breath and/or abdominal pain. 20:22 Patient's baseline: Neuro: alert and fully oriented, Motor: no deficits, Ambulation: cp walks without assistance, Speech: normal. Historical: - Allergies: 21:04 Codeine; kd4 21:04 PENICILLINS; kd4 - PMHx: 21:04 chronic back pain; kd4 - PSHx: 21:04 section; kd4 - Infectious Disease History:: Denies. - Social history:: Smoking status: Patient/guardian denies using tobacco. ROS: 20:30 Constitutional: Negative for body aches, chills, fever, poor PO intake, cp 20:30 Eyes: Negative for injury, pain, redness, and discharge, cp 20:30 ENT: Negative for drainage from ear(s), ear pain, sore throat, difficulty swallowing, difficulty handling secretions, 20:30 Cardiovascular: Positive for chest pain, Negative for edema, palpitations, 20:30 Respiratory: Positive for shortness of breath, Negative for cough, wheezing, 20:30 Abdomen/GI: Positive for nausea, Negative for abdominal pain, diarrhea, constipation, active vomiting, 20:30 : Negative for urinary symptoms, 20:30 Neuro: Positive for dizziness, headache, weakness, Negative for altered mental status, syncope, 20:30 All other systems are negative, Exam: 20:33 Constitutional: The patient appears in no acute distress, alert, awake, cp non-diaphoretic, non-toxic, well developed, well nourished, overweight 20:33 Head/Face: Normocephalic, atraumatic. cp 20:33 Eyes: Periorbital structures: appear normal, Pupils: equal, round, and reactive to light and accomodation, Extraocular movements: intact throughout, Conjunctiva: normal, no exudate, no injection, Sclera: no appreciated abnormality, Lids and lashes: appear normal, bilaterally, 20:33 ENT: External ear(s): are unremarkable, Ear canal(s): are normal, clear, TM's: dullness, bilaterally, Nose: is normal, Mouth: Lips: moist, Oral mucosa: moist, Posterior pharynx: Airway: no evidence of obstruction, patent, 20:33 Neck: ROM/movement: is normal, is supple, without pain, no range of motions limitations, no meningismus, no nuchal rigidity, 20:33 Chest/axilla: Inspection: normal, 20:33 Cardiovascular: Rate: normal, Rhythm: regular, Edema: is not appreciated, JVD: is not appreciated, 20:33 Respiratory: the patient does not display signs of respiratory distress, Respirations: normal, no use of accessory muscles, no retractions, labored breathing, is not present, Breath sounds: are clear throughout, no decreased breath sounds, no stridor, no wheezing, 20:33 Abdomen/GI: Inspection: abdomen appears normal, Palpation: abdomen is soft and non-tender, in all quadrants, 20:33 Skin: no rash present. 20:33 Neuro: Orientation: to person, place \T\ time. Mentation: is normal, Cerebellar function: is grossly normal, Motor: moves all fours, no focal deficits, Sensation: numbness, that is mild, of the left side face and left arm and left leg, 21:45 ECG was reviewed by the Attending Physician. cp 23:50 Radiologist reports: no acute findings on head CT cp Vital Signs: 20:35 BP 144 / 77; Pulse 71; Resp 18; Temp 98.2; Pulse Ox 100% on R/A; Pain 8/10; kd4 20:35 BP 144 / 77 Supine; Pulse 71; kd4 20:40 BP 135 / 82 Sitting; Pulse 73; kd4 20:45 BP 152 / 90 Standing; Pulse 87; kd4 23:47 BP 140 / 80; Pulse 70; Resp 18; Pulse Ox 99% on R/A; kd4 06/24 00:55 BP 148 / 81; Pulse 71; Resp 18; Temp 98.4(O); Pulse Ox 98% on R/A; Pain 0/10; kd4 06/23 20:35 Pain Scale: Adult kd4 06/24 00:55 Pain Scale: Adult kd4 NIH Stroke Scale Scores: 06/23 20:00 NIHSS Score: 1 kd4 [place] Coma Score: 23:44 Eye Response: spontaneous(4). Motor Response: obeys commands(6). Verbal Response: kd4 oriented(5). Total: 15. MDM: 20:12 Medical Screening Exam initiated cp 06/24 01:00 Data reviewed: vital signs, nurses notes, lab test result(s), EKG, radiologic studies, cp CT scan, plain films, and as a result, I will discharge patient. 01:00 Differential diagnosis: CVA, TIA, metabolic disorder, drug effects, acute SC, anxiety, cp migraine DAVIS. I considered the following discharge prescriptions or medication management in the emergency department Medications were administered in the Emergency Department. See MAR. Independent interpretation of the following test(s) in the Emergency Department EKG: See my EKG interpretation above. Test considered but Not performed: MRI: brain. Care significantly affected by the following chronic conditions: Obesity. Counseling: I had a detailed discussion with the patient and/or guardian regarding the historical points, exam findings, and any diagnostic results supporting the discharge/admit diagnosis, lab results, radiology results, to return to the emergency department if symptoms worsen or persist or if there are any questions or concerns that arise at home. Response to treatment: the patient's symptoms have markedly improved after treatment, Vital signs stable, headache and paresthesias resolved. Patient observed resting comfortably in exam room. Will discharge to home for continued monitoring. 06/23 20:18 Order name: Basic Metabolic Panel; Complete Time: 23:48 cp 06/23 20:18 Order name: CBC with Diff; Complete Time: 23:48 cp 06/23 20:18 Order name: Magnesium; Complete Time: 23:48 cp 06/23 20:18 Order name: PT-INR; Complete Time: 23:48 cp 06/23 20:18 Order name: Troponin HS; Complete Time: 23:48 cp 06/23 20:18 Order name: UA Rfx Donald Cult if indicated; Complete Time: 23:48 cp 06/23 20:18 Order name: XRAY Chest (1 view); Complete Time: 23:48 cp 06/23 20:27 Order name: CT Head Angio; Complete Time: 23:48 cp 06/23 20:27 Order name: CT Neck Angio; Complete Time: 23:48 cp 06/23 20:42 Order name: CT Head Brain wo Cont; Complete Time: 23:48 cp 06/23 20:18 Order name: Orthostatics; Complete Time: 20:59 cp 06/23 20:18 Order name: Cardiac monitoring; Complete Time: 21:47 cp 06/23 20:18 Order name: EKG - Nurse/Tech; Complete Time: 21:47 cp 06/23 20:18 Order name: IV Saline Lock; Complete Time: 21:47 cp 06/23 20:18 Order name: Labs collected and sent; Complete Time: 21:47 cp 06/23 20:18 Order name: O2 Per Protocol; Complete Time: 21:47 cp 06/23 20:18 Order name: O2 Sat Monitoring; Complete Time: 21:47 cp 06/23 20:18 Order name: Accucheck Blood Glucose; Complete Time: 21:00 cp EC/21 21:45 Rate is 69 beats/min. Rhythm is regular. [place] interval is normal. QRS interval is normal. cp QT interval is normal. T waves are Inverted in leads aVR, V2. Interpreted by me. Reviewed by me. Administered Medications: 21:49 Drug: Meclizine PO 25 mg PO once Route: PO; 06/24 01:15 Follow up: Response: No adverse reaction 4 06/23 21:49 Drug: NS 0.9% IV 1000 ml IV at 1 bolus Per protocol; to be given as a bolus over 60 kd4 minutes Route: IV; Rate: 1 bolus; Site: right forearm; 06/24 01:59 Follow up: IV Status: Completed infusion kd4 00:30 Drug: metoCLOPramide IVP 10 mg IVP once; over 1 to 2 minutes Route: IVP; Site: right kd4 forearm; 01:15 Follow up: Response: No adverse reaction kd4 00:30 Drug: diphenhydrAMINE IVP 25 mg IVP once Route: IVP; Site: right forearm; kd4 01:15 Follow up: Response: No adverse reaction kd4 00:30 Drug: Ketorolac IVP 15 mg IVP once Route: IVP; Site: right forearm; kd4 01:15 Follow up: Response: No adverse reaction kd4 00:30 Drug: Droperidol IVP 1.25 mg IVP once Route: IVP; Site: right forearm; kd4 01:14 Follow up: Response: No adverse reaction kd4 01:14 Not Given (Patient Refused): ativan1 mg IVP once kd4 Disposition: 07:16 Co-signature as Attending Physician, Don BERKOWITZ reviewed the patient's care tt7 provided by the Advanced Practice Provider and agree with the diagnosis and treatment plan. Disposition Summary: 06/24/25 01:01 Discharge Ordered Notes: Location: Home cp Problem: new cp Symptoms: have improved cp Condition: Stable cp Diagnosis - Headache cp - Paresthesia of skin cp - Weakness cp - Dizziness and giddiness cp Followup: cp - With: Private Physician - When: 2 - 3 days - Reason: Recheck today's complaints Discharge Instructions: - Discharge Summary Sheet cp - Dizziness cp - General Headache Without Cause cp - Migraine Headache cp - Paresthesia cp - Weakness cp Forms: - Medication Reconciliation Form cp - Antibiotic Education cp - Prescription Opioid Use cp - Patient Portal Instructions cp - Leadership Thank You Letter cp Prescriptions: - Ibuprofen 800 mg Oral Tablet - take 1 tablet ORAL route every 8 hours As needed take with food; 30 tablet; cp Refills: 0, Product Selection Permitted - Meclizine 25 mg Oral Tablet - take 1 tablet ORAL route every 8 hours As needed; 30 tablet; Refills: 0, cp Product Selection Permitted - Zofran 4 mg Oral Tablet - take 1 tablet ORAL route every 12 hours As needed; 20 tablet; Refills: 0, cp Product Selection Permitted NIH Stroke Scale - NIH Stroke Score Date: 06/23/2025 Time: 20:00 Total Score = 1 10. Dysarthria (speech clarity - read or repeat words) - 0(Normal) 11. Extinction and Inattention (visual/tactile/auditory/spatial/personal) - 0(No abnormality) 1a. Level of Consciousness (LOC) - 0(Alert) 1b. Level of Consciousness (LOC) (Month \T\ Age) - 0(Both) 1c. LOC Commands (Open \T\ Closes Eyes/Pump House Technician) - 0(Both) 2. Best Gaze (Lateral Gaze Paresis) - 0(Normal) 3. Visual Field Loss - 0(No visual loss) 4. Facial Palsy - 0(Normal) 5a. Left Arm: Motor (10-second hold) - 0(No drift) 5b. Right Arm: Motor (10-second hold) - 0(No drift) 6a. Left Leg: Motor (5-second hold - always test supine) - 0(No drift) 6b. Right Leg: Motor (5-second hold - always test supine) - 0(No drift) 7. Limb Ataxia (finger/nose \T\ heel/donovan - test with eyes open) - 0(Absent) 8. Sensory Loss (pinprick arms/legs/face) - 1(Mild to moderate loss) 9. Best Language: Aphasia (description/naming/reading) - 0(No aphasia) Initials: kd4 Signatures: Dispatcher [employer] EDMS Shabbir Reynolds PA-C PA-C cp Dahissa, Karim RN RN kd4 Don Mendez DO DO tt7 Corrections: (The following items were deleted from the chart) 06/23 20:19 20:19 Chest Single View+[email or web address] ordered. EDMS EDMS
[2025-06-24 02:44] VITALS: TEMP 98.2
[2025-06-24 02:47] VITALS: BP 140/80; O2SAT 99
== END 2025-06-24 01:59 | disposition home or self-care (01) ==
LOC: ER 19:49
DX: R51.9 Headache, unspecified (principal); R20.2 Paresthesia of skin; R53.1 Weakness; R42 Dizziness and giddiness; R07.9 Chest pain, unspecified
CPT/HCPCS: 96361; 93005; 85025; 81001; 80048; 36415; 83735; 85610; 84484; 70450; 70496; 70498; 71045; 96375; 96374; 99285; Q9967; J8597; J2765; J1200; J1790; J7030